=== PATIENT | male | born 1995 | race Caucasian/White ===

== ENCOUNTER 2018-02-09 22:45 | Emergency (ER) | END 2018-02-10 03:57 | disposition home or self-care (01) ==

== ENCOUNTER 2018-03-09 07:31 | Emergency (ER) | END 2018-03-09 10:37 | disposition home or self-care (01) ==

== ENCOUNTER 2018-06-23 08:52 | Emergency (ER) | payer OTHER ==
[~2018-06-23] VITALS: Wt 134.5 kg
[~2018-06-23 08:52] MED LIST: ALBU18HF INHALATION; AZIT250T PO; FAMO-96 PO; HYDR-4012 PO; NAPR-985 PO
[2018-06-23] MEDS ORDERED: ONDANSETRON 4 MG INJ IV STA (12:07)
[2018-06-23] MEDS ORDERED: SOD CHLORIDE 0.9% 1,000 ML IV STA (12:07)
[2018-06-23] MEDS ORDERED: KETOROLAC 30 MG INJ IV STA (12:07)
--- NOTE | 2018-06-23 12:12 | ERD ---
ER Documentation Chief Complaint Chief Complaint "gallstone HPI This is a 23-year-old male with possible history of gallstones presents to the ED with exacerbation of his gallstone pains. Patient states he started to have right upper quadrant and midepigastric pain 4 hours prior to his arrival. Pain has been waxing and waning since then. Pain was not improved with naproxen at home. He states pain is worse with any movement. States pain radiates to his back which is common. He states he was last seen here in March with lab work and imaging that was negative for any gallstone pancreatitis or choledocholithiasis. He presents again today requesting pain control. He denies any associated fevers, chills. Does report some nausea but denies any vomiting, diarrhea, constipation, urinary symptoms or any other complaints. ROS All systems reviewed and are negative except as per history of present illness. Medications Home Meds Active Scripts Famotidine* (Famotidine*) 20 Mg Tablet, 20 MG PO DAILY, #30 TAB Prov:CORTEZ SPEARS PA-C 06/23/18 Naproxen* (Naprosyn*) 500 Mg Tablet, 500 MG PO BID PRN for PAIN AND/OR INFLAMMATION, #30 TAB Prov:MERI LIM PA-C 04/25/18 Famotidine* (Pepcid*) 20 Mg Tablet, 20 MG PO BID for 4 Days, TAB Prov:MERI LIM PA-C 04/25/18 Famotidine* (Pepcid*) 20 Mg Tablet, 20 MG PO BID for pain for 15 Days, #30 TAB 0 Refills Prov:KRISTEL WAYNE 03/09/18 Hydrocodone/Acetaminophen ([place] 7.5-325 Tablet) 1 Each Tablet, 1 EACH PO DAILY for pain for 7 Days, #7 TAB 0 Refills Prov:KRISTEL WAYNE 03/09/18 Albuterol Sulfate* (Ventolin HFA*) 18 Gm Hfa.aer.ad, 2 PUFF INHALATION Q4H, #1 INHALER Prov:DARIENNICO 02/10/18 Azithromycin* (Zithromax*) 250 Mg Tablet, 250 MG PO .YOLANDA DIRECTED, #6 TAB TAKE 500 MG (2 TABS) THE FIRST DAY THEN 250 MG (1 TAB) DAYS 2-5 Prov:NICO LEDEZMA 02/10/18 Allergies Allergies: Coded Allergies: No Known Allergy (Unverified , 04/25/18) PMhx/Soc History of Surgery: No Anesthesia Reaction: No Hx Neurological Disorder: No Hx Respiratory Disorders: No Hx Cardiac Disorders: Yes (high cholesterol) Hx Psychiatric Problems: No Hx Miscellaneous Medical Probl: No Hx Alcohol Use: No Hx Substance Use: No Hx Tobacco Use: No Physical Exam Vitals Vital Signs Date Temp Pulse Resp B/P (MAP) Pulse Ox O2 O2 Flow FiO2 Time Delivery Rate 06/23/18 98.4 60 18 125/62 97 Room Air 14:32 (83) 06/23/18 98.1 80 20 136/78 97 08:55 (97) Physical Exam Const: + Appears uncomfortable. Head: Atraumatic Eyes: Normal Conjunctiva ENT: Normal External Ears, Nose and Mouth. Neck: Full range of motion. No meningismus. Resp: Clear to auscultation bilaterally Cardio: Regular rate and rhythm, no murmurs Abd: Soft, + moderate right upper quadrant and epigastric tenderness. Positive Us sign. Negative McBurney's. No distention. No rebound or guarding. Normal bowel sounds Skin: No petechiae or rashes Back: No midline or flank tenderness Ext: No cyanosis, or edema Neur: Awake and alert Psych: Normal Mood and Affect Result Diagram: 06/23/18 1322 06/23/18 1322 Results 24 hrs Laboratory Tests Test 06/23/18 13:19 06/23/18 13:22 Urine Color YELLOW Urine Clarity CLEAR Urine pH 5.0 Urine Specific [place] 1.028 Urine Ketones TRACE mg/dL Urine Nitrite NEGATIVE mg/dL Urine Bilirubin NEGATIVE mg/dL Urine Urobilinogen NEGATIVE mg/dL Urine Leukocyte Esterase NEGATIVE Urszula/ul Urine Hemoglobin NEGATIVE mg/dL Urine Glucose NEGATIVE mg/dL Urine Total Protein NEGATIVE mg/dl White Blood Count 11.4 10^3/ul Red Blood Count 5.04 10^6/ul Hemoglobin 13.5 g/dl Hematocrit 42.0 % Mean Corpuscular Volume 83.3 fl Mean Corpuscular Hemoglobin 26.8 pg Mean Corpuscular Hemoglobin Concent 32.1 g/dl Red Cell Distribution Width 12.8 % Platelet Count 342 10^3/UL Mean Platelet Volume 10.6 fl Immature Granulocytes % 0.400 % Neutrophils % 86.5 % Lymphocytes % 8.8 % Monocytes % 3.5 % Eosinophils % 0.4 % Basophils % 0.4 % Nucleated Red Blood Cells % 0.0 /100WBC Immature Granulocytes # 0.050 10^3/ul Neutrophils # 9.9 10^3/ul Lymphocytes # 1.0 10^3/ul Monocytes # 0.4 10^3/ul Eosinophils # 0.1 10^3/ul Basophils # 0.1 10^3/ul Nucleated Red Blood Cells # 0.0 10^3/ul Sodium Level 141 mmol/L Potassium Level 4.0 mmol/L Chloride Level 103 mmol/L Carbon Dioxide Level 25 mmol/L Anion Gap 13 Blood Urea Nitrogen 19 mg/dl Creatinine 0.83 mg/dl Est Glomerular Filtrat Rate mL/min > 60 mL/min Glucose Level 116 mg/dl Calcium Level 9.2 mg/dl Total Bilirubin 0.5 mg/dl Direct Bilirubin 0.00 mg/dl Indirect Bilirubin 0.5 mg/dl Aspartate Amino Transf (AST/SGOT) 31 IU/L Alanine Aminotransferase (ALT/SGPT) 27 IU/L Alkaline Phosphatase 71 IU/L Total Protein 7.5 g/dl Albumin 4.4 g/dl Globulin 3.10 g/dl Albumin/Globulin Ratio 1.41 Lipase 37 U/L Current Medications Medications Dose Sig/Erich Start Time Status Last (Trade) Ordered Route PRN Stop Time Admin Dose Reason Admin Sodium 1,000 ml @ Q1H STAT 06/23/18 DC 06/23/18 Chloride 1,000 mls/hr IV 12:07 13:10 06/23/18 13:06 Ondansetron 4 mg ONCE STAT 06/23/18 DC 06/23/18 HCl (Zofran IV 12:07 13:10 Inj) 06/23/18 12:10 Ketorolac 30 mg ONCE STAT 06/23/18 DC 06/23/18 Tromethamine IV 12:07 13:10 (Toradol) 06/23/18 12:10 Procedures/MDM LABS & DIAGNOSTIC IMAGING: CBC: no e/o of systemic infection or severe anemia CMP: no e/o severe acidosis, alkalosis, renal failure, diabetic ketoacidosis, liver disease Lipase: normal and indicative of no pancreatitis. Urine: no e/o acute infection or hematuria PROCEDURE: US Abdomen. CLINICAL INDICATION: abdominal pain TECHNIQUE: Multiple real-time images were acquired of the patient's right upper quadrant abdomen and retroperitoneum utilizing a high resolution transducer. COMPARISON: 04/25/18 FINDINGS: The liver demonstrates normal echogenicity. The liver is normal in size and no focal solid lesions are seen. The liver measures 16.07 cm in length. The portal vein is patent with normal direction of flow. No intrahepatic biliary dila tation is seen. Multiple calcified gallstones are identified within the gallbladder. There is trace pericholecystic fluid . There is no gallbladder wall thickening. The common bile duct measures 6 mm in maximal dimension. The visualized portions of the pancreas are unremarkable. The tail of the pancreas is not seen. No free fluid is identified. The right kidney is normal in size, and demonstrate normal echogenicity and cortical thickness. The right kidney measures 12.9 cm in long dimension. There is no evidence of hydronephrosis. There are no kidney stones. RPTAT: AA IMPRESSION: Cholelithiasis with trace pericholecystic fluid. No evidence of gallbladder wall thickening. Mildly dilated CBD. ED COURSE: The patient was given 1 L of IV fluids, Toradol, Zofran The medication was well tolerated and the patient had market improvement in symptoms. The patient remained stable throughout ED course. MEDICAL DECISION MAKING: This is a 23-year-old male with history of gallstones presents with biliary colic pain. Vital signs are stable and he has no fever here. Physical exam is positive for Us's however no signs of peritonitis or an acute surgical abdomen. CBC, CMP and UA are unremarkable. Ultrasound revealed mild CBD dilation however bilirubin, LFTs and lipase are all within normals. I have low suspicion for choledocholithiasis or cholangitis at this time. Repeat abdominal exam is benign. Patient can be discharged home with outpatient follow-up and management. He is given prescription for famotidine and told to follow-up with his PCP for referral to general surgeon for elective cholecystectomy. Strict return precautions discussed. PRESCRIPTIONS: Pepcid SPECIALIST FOLLOW UP RECOMMENDED: GI, general surgery. Patient has been advised to follow up with primary care in 1-2 days. Departure Diagnosis: Primary Impression: Gallstones Condition: Stable Patient Instructions: Gallstones Referrals: [facility] Additional Instructions: Call your primary care doctor TOMORROW for an appointment during the next 2-4 days and bring all the information and medications prescribed. If the symptoms get worse and your provider is unavailable, return to the Emergency Department immediately. CORTEZ SPEARS PA-C Jun 23, 2018 12:12
[2018-06-23] MEDS ORDERED: FAMO20TA18 PO (14:11)
[2018-06-23 14:32] VITALS: BP 125/62; PULSE 60; RESP 18
== END 2018-06-23 14:32 | disposition home or self-care (01) ==
LOC: FTE 08:52
DX: K80.20 Calculus of gallbladder without cholecystitis without obstruction (principal)
CPT/HCPCS: 36415; 76705; 80053; 81003; 83690; 85025; 96374; 96375; J1885; J2405; J7030; Z7502

== ENCOUNTER 2018-07-09 09:00 | Emergency (ER) | payer OTHER ==
[~2018-07-09] VITALS: Ht 175.3 cm; Wt 132.0 kg
[~2018-07-09 09:00] MED LIST changes: +FAMO20TA18 PO
[2018-07-09 09:06] VITALS: BP 147/89; PULSE 76; RESP 19; Ht 175.3 cm; Wt 132.0 kg
[2018-07-09] MEDS ORDERED: LIDOCAINE/MYLANTA 40 ML BTL PO ONE (10:00)
[2018-07-09] MEDS ORDERED: ACET-141 PO (11:00)
[2018-07-09] MEDS ORDERED: MAG-19 PO (11:00)
[2018-07-09] MEDS ORDERED: METR500T PO (11:00)
[2018-07-09] MEDS ORDERED: IBUP-1561 PO (11:00)
[2018-07-09] MEDS ORDERED: CIPR500T4 PO (11:00)
--- NOTE | 2018-07-09 11:05 | ERD ---
ER Documentation Chief Complaint Chief Complaint epigastric painsince yesterday HPI 23-year-old male presents for epigastric abdominal pain times 1 day. He states that is 8 out of 10 pain, described as a pressure sensation. He has a history of cholecystitis. States that the pain does worsen a little bit with eating. He tried Pepto and Tums at home without relief. He was also told in the past that he may have heartburn. Denies history of alcohol use. Denies any bulging in the abdominal area. No other treatments tried at home. ROS All systems reviewed and are negative except as per history of present illness. Medications Home Meds Active Scripts Metronidazole* (Flagyl*) 500 Mg Tablet, 500 MG PO TID for cholithiasis with wall thicken for 5 Days, #15 TAB Prov:SILVIA SWENSON DO 07/09/18 Ciprofloxacin Hcl* (Ciprofloxacin Hcl*) 500 Mg Tablet, 500 MG PO BID for cholecystitis, #10 TAB Prov:SILVIA SWENSON DO 07/09/18 Acetaminophen* (Acetaminophen*) 500 MG Extra Strength Tablet, 500 MG PO Q4H PRN for PAIN AND OR ELEVATED TEMP, #30 TAB Prov:SILVIA SWENSON DO 07/09/18 Magaldrate/Simethicone* (Mylanta*) 355 Ml Susp, 30 ML PO QID PRN for GASTROINTESTINAL UPSET, #1 BOTTLE Prov:SILVIA SWENSON DO 07/09/18 Ibuprofen* (Motrin*) 400 Mg Tab, 400 MG PO Q6H PRN for PAIN AND OR ELEVATED TEMP, #30 TAB Prov:SILVIA SWENSON DO 07/09/18 Famotidine* (Famotidine*) 20 Mg Tablet, 20 MG PO DAILY, #30 TAB Prov:CORTEZ SPEARS PA-C 06/23/18 Naproxen* (Naprosyn*) 500 Mg Tablet, 500 MG PO BID PRN for PAIN AND/OR INFLAMMATION, #30 TAB Prov:MERI LIM PA-C 04/25/18 Famotidine* (Pepcid*) 20 Mg Tablet, 20 MG PO BID for 4 Days, TAB Prov:MERI LIM PA-C 04/25/18 Famotidine* (Pepcid*) 20 Mg Tablet, 20 MG PO BID for pain for 15 Days, #30 TAB 0 Refills Prov:KRISTEL WAYNE 03/09/18 Hydrocodone/Acetaminophen ([place] 7.5-325 Tablet) 1 Each Tablet, 1 EACH PO DAILY for pain for 7 Days, #7 TAB 0 Refills Prov:KRISTEL WAYNE 03/09/18 Albuterol Sulfate* (Ventolin HFA*) 18 Gm Hfa.aer.ad, 2 PUFF INHALATION Q4H, #1 INHALER Prov:DARIEN,NICO 02/10/18 Azithromycin* (Zithromax*) 250 Mg Tablet, 250 MG PO .ZPACK DIRECTED, #6 TAB TAKE 500 MG (2 TABS) THE FIRST DAY THEN 250 MG (1 TAB) DAYS 2-5 Prov:DARIEN,NICO 02/10/18 Allergies Allergies: Coded Allergies: No Known Allergy (Unverified , 04/25/18) PMhx/Soc History of Surgery: No Anesthesia Reaction: No Hx Neurological Disorder: No Hx Respiratory Disorders: No Hx Cardiac Disorders: Yes (high cholesterol) Hx Psychiatric Problems: No Hx Miscellaneous Medical Probl: Yes (gallstones) Hx Alcohol Use: No Hx Substance Use: No Hx Tobacco Use: No Smoking Status: Never smoker Physical Exam Vitals Vital Signs Date Temp Pulse Resp B/P (MAP) Pulse Ox O2 O2 Flow FiO2 Time Delivery Rate 07/09/18 97.9 76 19 147/89 96 09:06 (108) Physical Exam Const: No acute distress Resp: Clear to auscultation bilaterally Cardio: Regular rate and rhythm, no murmurs Abd: Soft, non distended. Normal bowel sounds, mild to moderate tenderness over the epigastric and right upper quadrant, no McBurney's point tenderness, no Us sign, no rebound or guarding noted Skin: No petechiae or rashes Back: No midline or flank tenderness Ext: No cyanosis, or edema Neur: Awake and alert Psych: Normal Mood and Affect Result Diagram: 07/09/18 0951 07/09/18 0951 Results 24 hrs Laboratory Tests Test 07/09/18 09:51 White Blood Count 10.5 10^3/ul Red Blood Count 5.12 10^6/ul Hemoglobin 13.6 g/dl Hematocrit 42.4 % Mean Corpuscular Volume 82.8 fl Mean Corpuscular Hemoglobin 26.6 pg Mean Corpuscular Hemoglobin Concent 32.1 g/dl Red Cell Distribution Width 12.8 % Platelet Count 359 10^3/UL Mean Platelet Volume 10.1 fl Immature Granulocytes % 0.800 % Neutrophils % 80.5 % Lymphocytes % 12.6 % Monocytes % 4.5 % Eosinophils % 1.3 % Basophils % 0.3 % Nucleated Red Blood Cells % 0.0 /100WBC Immature Granulocytes # 0.080 10^3/ul Neutrophils # 8.5 10^3/ul Lymphocytes # 1.3 10^3/ul Monocytes # 0.5 10^3/ul Eosinophils # 0.1 10^3/ul Basophils # 0.0 10^3/ul Nucleated Red Blood Cells # 0.0 10^3/ul Urine Color YELLOW Urine Clarity CLEAR Urine pH 5.0 Urine Specific [place] 1.021 Urine Ketones NEGATIVE mg/dL Urine Nitrite NEGATIVE mg/dL Urine Bilirubin NEGATIVE mg/dL Urine Urobilinogen NEGATIVE mg/dL Urine Leukocyte Esterase NEGATIVE Ursz[place]/ul Urine Microscopic RBC 1 /HPF Urine Microscopic WBC 0 /HPF Urine Mucus FEW /HPF Urine Hemoglobin 1+ mg/dL Urine Glucose NEGATIVE mg/dL Urine Total Protein NEGATIVE mg/dl Sodium Level 144 mmol/L Potassium Level 4.3 mmol/L Chloride Level 105 mmol/L Carbon Dioxide Level 27 mmol/L Anion Gap 12 Blood Urea Nitrogen 17 mg/dl Creatinine 0.89 mg/dl Est Glomerular Filtrat Rate mL/min > 60 mL/min Glucose Level 109 mg/dl Calcium Level 9.9 mg/dl Total Bilirubin 0.3 mg/dl Direct Bilirubin 0.00 mg/dl Indirect Bilirubin 0.3 mg/dl Aspartate Amino Transf (AST/SGOT) 24 IU/L Alanine Aminotransferase (ALT/SGPT) 19 IU/L Alkaline Phosphatase 86 IU/L Total Protein 8.0 g/dl Albumin 4.6 g/dl Globulin 3.40 g/dl Albumin/Globulin Ratio 1.35 Lipase 46 U/L Current Medications Medications Dose Sig/Erich Start Time Status Last (Trade) Ordered Route PRN Stop Time Admin Dose Reason Admin 40 ml ONCE ONCE 07/09/18 DC 07/09/18 Miscellaneous PO 10:00 09:50 Medication 07/09/18 10:01 (Gi Cocktail (2)) Procedures/MDM Medical Decision Making: Differential diagnosis includes but not limited to acute gastritis, acute gastr oenteritis, appendicitis, cholecystitis, pancreatitis. Patient appeared well on physical exam. Nontoxic appearing. ED course: Patient was given . Symptoms improved with treatment. Labs: CBC showed no severe anemia, no elevated WBC to suggest infection CMP showed no electrolyte abnormalities, there was normal kidney and liver function Lipase was normal UA was negative for infection Imaging: Gallbladder ultrasound shows gallbladder wall thickening with cholelithiasis Given possible early cholecystitis, patient will be treated with antibiotics and pain medications. He has a normal white count as well as no fever and only minimal pain therefore patient is felt stable for outpatient management. Patient advised will need follow-up with general surgery as an outpatient for elective surgery. Prescription(s): Patient given prescription for supportive medications . Patient advised to follow up with PCP in 1-2 days. Patient advised to return to ED for new or worsening symptoms. Patient stable on discharge from the ED. Disclaimer: Inadvertent spelling and grammatical errors are likely due to EHR/dictation software use and do not reflect on the overall quality of patient care. Also, please note that the electronic time recorded on this note does not necessarily reflect the actual time of the patient encounter. Departure Diagnosis: Primary Impression: Abdominal pain Abdominal location: epigastric Qualified Codes: R10.13 - Epigastric pain Additional Impression: Cholelithiasis Condition: Fair Patient Instructions: Gallstones Additional Instructions: Call your primary care doctor TOMORROW for an appointment during the next 1-2 days.See the doctor sooner or return here if your condition worsens before your appointment time. Cholelithiasis with wall thickening found on ultrasound however WBC within normal limits, no fever. treat with antibiotics recommend referral to general surgery as an outpatient. SILVIA SWENSON DO Jul 09, 2018 11:05
== END 2018-07-09 11:10 | disposition home or self-care (01) ==
LOC: FTE 09:00
DX: K80.20 Calculus of gallbladder without cholecystitis without obstruction (principal)
CPT/HCPCS: 36415; 76705; 80053; 81001; 83690; 85025; Z7502; Z7610

== ENCOUNTER 2018-07-23 15:22 | Emergency (ER) | payer OTHER ==
[~2018-07-23] VITALS: Wt 132.4 kg
[~2018-07-23 15:22] MED LIST changes: +ACET-141 PO; +CIPR500T4 PO; +IBUP-1561 PO; +MAG-19 PO; +METR500T PO
[2018-07-23 15:25] VITALS: RESP 20
[2018-07-23] MEDS ORDERED: KETOROLAC 30 MG INJ IM STA (16:43)
[2018-07-23] MEDS ORDERED: LIDOCAINE/MYLANTA 40 ML BTL PO STA (16:43)
[2018-07-23] MEDS ORDERED: FAMOTIDINE 20 MG TAB PO STA (16:43)
[2018-07-23] MEDS ORDERED: HYDR-4011 PO (16:53)
--- NOTE | 2018-07-23 17:02 | ERD ---
ER Documentation Chief Complaint Chief Complaint pt. states "gallstone" pain with n/v HPI 23-year-old male with no reported past medical surgical history who presents with epigastric abdominal pain along with nausea and vomiting. Patient states he has history of gallstones and pain feels similar to pain he had when he presented to this very ED on the of this month for similar complaints. Time patient had ultrasound which showed gallbladder stones and evidence of possible cholecystitis. Patient discharged with pain medication and appropriate antibiotics at the time. Patient has been followed up with his PMD and has been referred to surgery but he is awaiting for insurance clearance. Since his last presentation to ED suspect pain is worsened despite medications. Had a single episode of vomiting several hours ago. Pain described as epigastric with radiation to the back. He otherwise denies urinary symptoms such as frequency, hematuria, discharge. He otherwise without complaint. ROS All systems reviewed and are negative except as per history of present illness. Medications Home Meds Active Scripts Hydrocodone/Acetaminophen ([place] 5-325 Tablet) 1 Each Tablet, 1 TAB PO Q6H PRN for PAIN, #7 TAB Prov:THEA LY PA-C 07/23/18 Metronidazole* (Flagyl*) 500 Mg Tablet, 500 MG PO TID for cholithiasis with wall thicken for 5 Days, #15 TAB Prov:SILVIA SWENSON DO 07/09/18 Ciprofloxacin Hcl* (Ciprofloxacin Hcl*) 500 Mg Tablet, 500 MG PO BID for cholecystitis, #10 TAB Prov:SILVIA SWENSON DO 07/09/18 Acetaminophen* (Acetaminophen*) 500 MG Extra Strength Tablet, 500 MG PO Q4H PRN for PAIN AND OR ELEVATED TEMP, #30 TAB Prov:SILVIA SWENSON DO 07/09/18 Magaldrate/Simethicone* (Mylanta*) 355 Ml Susp, 30 ML PO QID PRN for GASTROINTESTINAL UPSET, #1 BOTTLE Prov:SILVIA SWENSON DO 07/09/18 Ibuprofen* (Motrin*) 400 Mg Tab, 400 MG PO Q6H PRN for PAIN AND OR ELEVATED TEMP, #30 TAB Prov:SILVIA SWENSON DO 07/09/18 Famotidine* (Famotidine*) 20 Mg Tablet, 20 MG PO DAILY, #30 TAB Prov:CORTEZ SPEARS PA-C 06/23/18 Naproxen* (Naprosyn*) 500 Mg Tablet, 500 MG PO BID PRN for PAIN AND/OR INFLAMMATION, #30 TAB Prov:MERI LIM PA-C 04/25/18 Famotidine* (Pepcid*) 20 Mg Tablet, 20 MG PO BID for 4 Days, TAB Prov:MERI LIM PA-C 04/25/18 Famotidine* (Pepcid*) 20 Mg Tablet, 20 MG PO BID for pain for 15 Days, #30 TAB 0 Refills Prov:KRISTEL WAYNE 03/09/18 Hydrocodone/Acetaminophen ([place] 7.5-325 Tablet) 1 Each Tablet, 1 EACH PO DAILY for pain for 7 Days, #7 TAB 0 Refills Prov:KRISTEL WAYNE 03/09/18 Albuterol Sulfate* (Ventolin HFA*) 18 Gm Hfa.aer.ad, 2 PUFF INHALATION Q4H, #1 INHALER Prov:DARIEN,NICO 02/10/18 Azithromycin* (Zithromax*) 250 Mg Tablet, 250 MG PO .B[place] DIRECTED, #6 TAB TAKE 500 MG (2 TABS) THE FIRST DAY THEN 250 MG (1 TAB) DAYS 2-5 Prov:DARIEN,NICO 02/10/18 Allergies Allergies: Coded Allergies: No Known Allergy (Unverified , 07/23/18) PMhx/Soc Medical and Surgical Hx: pt denies Surgical Hx History of Surgery: No Anesthesia Reaction: No Hx Neurological Disorder: No Hx Respiratory Disorders: No Hx Cardiac Disorders: Yes (high cholesterol) Hx Psychiatric Problems: No Hx Miscellaneous Medical Probl: Yes (gallstones) Hx Alcohol Use: No Hx Substance Use: No Hx Tobacco Use: No Smoking Status: Never smoker FmHx Family History: No diabetes, No coronary disease, No other Physical Exam Vitals Vital Signs Date Temp Pulse Resp B/P (MAP) Pulse Ox O2 O2 Flow FiO2 Time Delivery Rate 07/23/18 87 147/83 99 Room Air 17:54 (104) 07/23/18 97.9 80 20 140/84 98 15:25 (102) Physical Exam Const: No acute distress Head: Atraumatic Eyes: Normal Conjunctiva ENT: Normal External Ears, Nose and Mouth. Neck: Full range of motion. No meningismus. Resp: Clear to auscultation bilaterally Cardio: Regular rate and rhythm, no murmurs Abd: Soft, tenderness to deep palp to epigastrium, non distended. Normal bowel sounds Skin: No petechiae or rashes Back: No midline or flank tenderness Ext: No cyanosis, or edema Neur: Awake and alert Psych: Normal Mood and Affect Results 24 hrs Current Medications Medications Dose Sig/Erich Start Time Status Last (Trade) Ordered Route PRN Stop Time Admin Dose Reason Admin Famotidine 20 mg ONCE STAT 07/23/18 DC 07/23/18 (Pepcid) PO 16:43 16:52 07/23/18 16:44 40 ml ONCE STAT 07/23/18 DC 07/23/18 Miscellaneous PO 16:43 16:52 Medication 07/23/18 16:44 (Gi Cocktail (2)) Ketorolac 30 mg ONCE STAT 07/23/18 DC 07/23/18 Tromethamine IM 16:43 16:52 (Toradol) 07/23/18 16:44 Procedures/MDM 23-year-old male with known history of gallstones who presents with gastric pain and nausea and vomiting. She recently treated for resumed cholecystitis. Still awaiting surgical evaluation. His main complaint is pain despite Rx. Patient is nontoxic-appearing, afebrile, without any physical exam findings which are concerning for disseminated infection. Patient detail he will likely need evaluation to address his pain. Patient states he will present to his PMD tomorrow to inquire about surgical referral which he states was made several weeks ago. Their evaluation has not identified a emergent etiology for the abdominal pain. Specifically, given exam and history I have very low suspicion for appendicitis, ischemic bowel, bowel perforation, or any other life threatening disease. I have discussed with the patient the level of uncertainty with undifferentiated abdominal pain and clearly explained the need to follow-up as noted on the discharge instructions, or return to the Emergency Department immediately if the pain worsens, develops fever, persistent and uncontrollable vomiting, or for any new symptoms or concerns. I discussed with the patient that this presentation today for abdominal pain could represent a significant risk for an acute abdominal process. Although the tests in the ED were essentially normal, there is still a possibility of a process such as appendicitis, diverticulitis, cholecystitis, ulcer, early bowel obstruction, mesenteric ischemia, kidney stone, or even kidney infection which could subsequently cause disability or . DISPOSITION PLAN: We discussed follow up with the patient's primary care doctor within 24 to 48 hours. Patient counseled regarding my diagnostic impression and care plan. Prior to discharge all questions answered. Pt agrees with treatment plan and understands strict return precautions. Precautionary instructions provided including instructions to return to the ER if not improving or for any worsening or changing symptoms or concerns. Disclaimer: Inadvertent spelling and grammatical errors are likely due to EHR/dictation software use and do not reflect on the overall quality of patient care. Also, please note that the electronic time recorded on this note does not necessarily reflect the actual time of the patient encounter. Departure Diagnosis: Primary Impression: Gallstones Additional Impression: Abdominal pain Condition: Stable Patient Instructions: Abdominal Pain, Gallstones Referrals: [facility] (PCP) Additional Instructions: Call your primary care doctor TOMORROW for an appointment during the next 2-3 days.See the doctor sooner or return here if your condition worsens before your appointment time. Follow-up with your PMD you need referral to general surgeon for evaluation and your history of gallstones. THEA LY PA-C Jul 23, 2018 17:02
[2018-07-23 17:54] VITALS: BP 147/83; PULSE 87
== END 2018-07-23 17:56 | disposition home or self-care (01) ==
LOC: FTE 15:22
DX: K80.20 Calculus of gallbladder without cholecystitis without obstruction (principal)
CPT/HCPCS: J1885; Z7610; 96372

== ENCOUNTER 2018-07-26 07:14 | Inpatient (IN) | payer OTHER ==
[~2018-07-26] VITALS: Ht 172.7 cm; Wt 130.0 kg
[~2018-07-26 07:14] MED LIST changes: +HYDR-4011 PO
[2018-07-26 07:15] VITALS: Ht 172.7 cm; Wt 130.0 kg
[2018-07-26] MEDS ORDERED: SOD CHLORIDE 0.9% 1,000 ML IV STA (07:33)
[2018-07-26] MEDS ORDERED: morphine 4 MG/ML VIAL IV STA (07:33)
[2018-07-26] MEDS ORDERED: ONDANSETRON 4 MG INJ IV STA (07:33)
[2018-07-26] MEDS ORDERED: PIPER-TAZO 3.375 GM IV (PMX) 100 ML IVPB ONE (09:00)
--- NOTE | 2018-07-26 09:04 | CONS ---
Assessment/Plan Assessment/Plan Assessment/Plan (Daily) Cholelithiasis and likely choledocholithiasis. Plan: Patient will need MRCP and GI consultation. Cholecystectomy when common duct cleared Consultation Date/Type/Reason Admit Date/Time Date of Consultation: July 26, 2018 Type of Consult General surgery Reason for Consultation Gallstones and jaundice Date/Time of Note DATE: 07/26/18 TIME: 09:00 Hx of Present Illness The patient is an otherwise healthy 23-year-old gentleman who has been in the emergency room at least 4 possibly 5 times since February for biliary colic. He now presents with identical pain, this time his bilirubin is elevated to 3.1 with transaminase elevation of ALT of 422 AST 416 and alkaline phosphatase of 193. He notes that his urine has recently gotten darker. He has had no fevers or chills. Review of systems: HEENT: No previous history or symptoms Pulmonary: No history of asthma, pneumonia or shortness of breath Cardiac: No history of chest pain, LA or arrhythmia Abdomen: As in the HPI. No previous abdominal surgeries. : Asymptomatic Past Medical History Medical History: gallstones Home Meds Active Scripts Hydrocodone/Acetaminophen ([place] 5-325 Tablet) 1 Each Tablet, 1 TAB PO Q6H PRN for PAIN, #7 TAB Prov:THEA LY PA-C 07/23/18 Metronidazole* (Flagyl*) 500 Mg Tablet, 500 MG PO TID for cholithiasis with wall thicken for 5 Days, #15 TAB Prov:SILVIA SWENSON DO 07/09/18 Ciprofloxacin Hcl* (Ciprofloxacin Hcl*) 500 Mg Tablet, 500 MG PO BID for cholecystitis, #10 TAB Prov:SILVIA SWENSON DO 07/09/18 Acetaminophen* (Acetaminophen*) 500 MG Extra Strength Tablet, 500 MG PO Q4H PRN for PAIN AND OR ELEVATED TEMP, #30 TAB Prov:SILVIA SWENSON DO 07/09/18 Magaldrate/Simethicone* (Mylanta*) 355 Ml Susp, 30 ML PO QID PRN for GASTROI NTESTINAL UPSET, #1 BOTTLE Prov:SILVIA SWENSON DO 07/09/18 Ibuprofen* (Motrin*) 400 Mg Tab, 400 MG PO Q6H PRN for PAIN AND OR ELEVATED TEMP, #30 TAB Prov:SILVIA SWENSON DO 07/09/18 Famotidine* (Famotidine*) 20 Mg Tablet, 20 MG PO DAILY, #30 TAB Prov:CORTEZ SPEARS Carrillo MCDONALD 06/23/18 Naproxen* (Naprosyn*) 500 Mg Tablet, 500 MG PO BID PRN for PAIN AND/OR INFLAMMATION, #30 TAB Prov:MERI LIM PA-C 04/25/18 Famotidine* (Pepcid*) 20 Mg Tablet, 20 MG PO BID for 4 Days, TAB Prov:MERI LIM PA-C 04/25/18 Famotidine* (Pepcid*) 20 Mg Tablet, 20 MG PO BID for pain for 15 Days, #30 TAB 0 Refills Prov:KRISTEL WAYNE 03/09/18 Hydrocodone/Acetaminophen ([place] 7.5-325 Tablet) 1 Each Tablet, 1 EACH PO DAILY for pain for 7 Days, #7 TAB 0 Refills Prov:KRISTEL WAYNE 03/09/18 Albuterol Sulfate* (Ventolin HFA*) 18 Gm Hfa.aer.ad, 2 PUFF INHALATION Q4H, #1 INHALER Prov:DARIEN,NICO 02/10/18 Azithromycin* (Zithromax*) 250 Mg Tablet, 250 MG PO .BETICK DIRECTED, #6 TAB TAKE 500 MG (2 TABS) THE FIRST DAY THEN 250 MG (1 TAB) DAYS 2-5 Prov:DARIEN,NICO 02/10/18 Medications Current Medications Piperacillin Sod/ Tazobactam Sod 100 ml @ 200 mls/hr ONCE ONCE IVPB Last administered on 07/26/18at 08:55; Admin Dose 200 MLS/HR; Start 07/26/18 at 09:00; Stop 07/26/18 at 09:29 Allergies: Coded Allergies: No Known Allergy (Unverified , 07/26/18) Past Surgical History Past Surgical Hx: no surgical history Exam/Review of Systems Exam Vitals Vital Signs Date Temp Pulse Resp B/P (MAP) Pulse Ox O2 O2 Flow FiO2 Time Delivery Rate 07/26/18 76 18 129/69 96 Room Air 08:50 (89) 07/26/18 97.8 07:15 Constitutional: alert, oriented Psych: no complaints Head: normocephalic Eyes: icteric ENMT: nl external ears & nose Neck: supple Respiratory: clear to auscultation Cardiovascular: regular rate and rhythm Gastrointestinal: tender (Epigastrium) Genitourinary - Male: nl penis Musculoskeletal: nl extremities to inspection Extremities: normal pulses Neurological: [employer] II-XII intact Skin: nl turgor Results Result Diagram: 07/26/18 0745 07/26/18 0745 Results 24hrs Laboratory Tests Test 07/26/18 07:38 07/26/18 07:45 Urine Color SUDHAKAR Urine Clarity CLEAR Urine pH 5.0 Urine Specific [place] 1.017 Urine Ketones NEGATIVE Urine Nitrite NEGATIVE Urine Bilirubin 1+ H Urine Urobilinogen 2+ H Urine Leukocyte Esterase NEGATIVE Urine Hemoglobin NEGATIVE Urine Glucose NEGATIVE Urine Total Protein NEGATIVE White Blood Count 7.9 # Red Blood Count 5.30 Hemoglobin 14.1 Hematocrit 44.0 Mean Corpuscular Volume 83.0 Mean Corpuscular Hemoglobin 26.6 L Mean Corpuscular Hemoglobin Concent 32.0 Red Cell Distribution Width 13.2 Platelet Count 319 Mean Platelet Volume 10.3 Immature Granulocytes % 0.500 H Neutrophils % 71.0 Lymphocytes % 19.4 Monocytes % 6.3 Eosinophils % 2.2 Basophils % 0.6 Nucleated Red Blood Cells % 0.0 Immature Granulocytes # 0.040 H Neutrophils # 5.6 Lymphocytes # 1.5 Monocytes # 0.5 Eosinophils # 0.2 Basophils # 0.1 Nucleated Red Blood Cells # 0.0 Sodium Level 144 Potassium Level 4.2 Chloride Level 106 Carbon Dioxide Level 28 Anion Gap 10 Blood Urea Nitrogen 12 Creatinine 0.96 Est Glomerular Filtrat Rate mL/min > 60 Glucose Level 122 Calcium Level 9.9 Total Bilirubin 3.1 H Direct Bilirubin 1.60 H Indirect Bilirubin 1.5 H Aspartate Amino Transf (AST/SGOT) 416 H Alanine Aminotransferase (ALT/SGPT) 422 H Alkaline Phosphatase 197 H Total Protein 8.3 H Albumin 4.4 Globulin 3.90 H Albumin/Globulin Ratio 1.12 Lipase 53 Medications Medication Current Medications Piperacillin Sod/ Tazobactam Sod 100 ml @ 200 mls/hr ONCE ONCE IVPB Last administered on 07/26/18at 08:55; Admin Dose 200 MLS/HR; Start 07/26/18 at 09:00; Stop 07/26/18 at 09:29 PASCUAL BECKETT MD July 26, 2018 09:04
[2018-07-26] MEDS ORDERED: FAMO20TA18 PO (09:14)
[2018-07-26] MEDS ORDERED: ACETAMINOPHEN 325 MG TAB PO PRN (09:30)
[2018-07-26] MEDS ORDERED: ONDANSETRON 4 MG INJ IV PRN ×2 (09:30→11:00)
--- NOTE | 2018-07-26 09:57 | ERD ---
ER Documentation Chief Complaint Chief Complaint abd pain with nausea x 3 days HX of gallstones HPI 23-year-old male presenting with abdominal pain to the epigastric region with nausea. Patient has a history of gallstones and was seen by Dr. Collins yesterday and told he needed a cholecystectomy. Patient has not had a surgery and has had continued and worsening pain as of yesterday. Denies any fevers. Denies chest pain or breath. Denies medical problems. NKDA. Surgical history denies. Social history denies. Last bowel movement yesterday ROS All systems reviewed and are negative except as per history of present illness. Medications Home Meds Reported Medications Famotidine* (Famotidine*) 20 Mg Tablet, 20 MG PO BID, #60 TAB 07/26/18 Discontinued Scripts Hydrocodone/Acetaminophen ([place] 5-325 Tablet) 1 Each Tablet, 1 TAB PO Q6H PRN for PAIN, #7 TAB Prov:THEA LY PA-C 07/23/18 Metronidazole* (Flagyl*) 500 Mg Tablet, 500 MG PO TID for cholithiasis with wall thicken for 5 Days, #15 TAB Prov:SILVIA SWENSON DO 07/09/18 Ciprofloxacin Hcl* (Ciprofloxacin Hcl*) 500 Mg Tablet, 500 MG PO BID for c holecystitis, #10 TAB Prov:SILVIA SWENSON DO 07/09/18 Acetaminophen* (Acetaminophen*) 500 MG Extra Strength Tablet, 500 MG PO Q4H PRN for PAIN AND OR ELEVATED TEMP, #30 TAB Prov:SILVIA SWENSON DO 07/09/18 Magaldrate/Simethicone* (Mylanta*) 355 Ml Susp, 30 ML PO QID PRN for GASTROINTESTINAL UPSET, #1 BOTTLE Prov:SILVIA SWENSON DO 07/09/18 Ibuprofen* (Motrin*) 400 Mg Tab, 400 MG PO Q6H PRN for PAIN AND OR ELEVATED TEMP, #30 TAB Prov:SILVIA SWENSON DO 07/09/18 Famotidine* (Famotidine*) 20 Mg Tablet, 20 MG PO DAILY, #30 TAB Prov:CORTEZ SPEARS PA-C 06/23/18 Naproxen* (Naprosyn*) 500 Mg Tablet, 500 MG PO BID PRN for PAIN AND/OR INFLAMMATION, #30 TAB Prov:MERI LIM PA-C 04/25/18 Famotidine* (Pepcid*) 20 Mg Tablet, 20 MG PO BID for 4 Days, TAB Prov:LIMMERIMEL Jeffery PA-C 04/25/18 Famotidine* (Pepcid*) 20 Mg Tablet, 20 MG PO BID for pain for 15 Days, #30 TAB 0 Refills Prov:KRISTEL WAYNE 03/09/18 Hydrocodone/Acetaminophen ([place] 7.5-325 Tablet) 1 Each Tablet, 1 EACH PO DAILY for pain for 7 Days, #7 TAB 0 Refills Prov:KRISTEL WAYNE 03/09/18 Albuterol Sulfate* (Ventolin HFA*) 18 Gm Hfa.aer.ad, 2 PUFF INHALATION Q4H, #1 INHALER Prov:DARIENJOSENICO 02/10/18 Azithromycin* (Zithromax*) 250 Mg Tablet, 250 MG PO .ZPACK DIRECTED, #6 TAB TAKE 500 MG (2 TABS) THE FIRST DAY THEN 250 MG (1 TAB) DAYS 2-5 Prov:DARIEN,NICO 02/10/18 Allergies Allergies: Coded Allergies: No Known Allergy (Unverified , 07/26/18) PMhx/Soc History of Surgery: No Anesthesia Reaction: No Hx Neurological Disorder: No Hx Respiratory Disorders: No Hx Cardiac Disorders: Yes (high cholesterol) Hx Psychiatric Problems: No Hx Miscellaneous Medical Probl: Yes (gallstones) Hx Alcohol Use: No Hx Substance Use: No Hx Tobacco Use: No FmHx Family History: No diabetes, No coronary disease, No other Physical Exam Vitals Vital Signs Date Temp Pulse Resp B/P (MAP) Pulse Ox O2 O2 Flow FiO2 Time Delivery Rate 07/26/18 76 18 129/69 96 Room Air 08:50 (89) 07/26/18 97.8 82 18 135/83 97 07:15 (100) Physical Exam GENERAL: The patient is well-appearing, well-nourished, in no acute distress HEENT: Atraumatic. Conjunctivae are pink. Pupils equal, round, and reactive to light. There is no scleral icterus. Tympanic membranes clear bilaterally. Oropharynx clear. NECK: C-spine is soft and supple. There is no meningismus. There is no cervical lymphadenopathy. CHEST: Clear to auscultation bilaterally. There are no rales, wheezes or rhonchi. HEART: Regular rate and rhythm. No murmurs, clicks, rubs or gallops. ABDOMEN: Normal active bowel sounds. No distention. No organomegaly. Tender to palpation in the epigastric region. Result Diagram: 07/26/18 0745 07/26/18 0745 Results 24 hrs Laboratory Tests Test 07/26/18 07:38 07/26/18 07:45 Urine Color SUDHAKAR Urine Clarity CLEAR Urine pH 5.0 Urine Specific [place] 1.017 Urine Ketones NEGATIVE mg/dL Urine Nitrite NEGATIVE mg/dL Urine Bilirubin 1+ mg/dL Urine Urobilinogen 2+ mg/dL Urine Leukocyte Esterase NEGATIVE [place]/ul Urine Hemoglobin NEGATIVE mg/dL Urine Glucose NEGATIVE mg/dL Urine Total Protein NEGATIVE mg/dl White Blood Count 7.9 10^3/ul Red Blood Count 5.30 10^6/ul Hemoglobin 14.1 g/dl Hematocrit 44.0 % Mean Corpuscular Volume 83.0 fl Mean Corpuscular Hemoglobin 26.6 pg Mean Corpuscular Hemoglobin Concent 32.0 g/dl Red Cell Distribution Width 13.2 % Platelet Count 319 10^3/UL Mean Platelet Volume 10.3 fl Immature Granulocytes % 0.500 % Neutrophils % 71.0 % Lymphocytes % 19.4 % Monocytes % 6.3 % Eosinophils % 2.2 % Basophils % 0.6 % Nucleated Red Blood Cells % 0.0 /100WBC Immature Granulocytes # 0.040 10^3/ul Neutrophils # 5.6 10^3/ul Lymphocytes # 1.5 10^3/ul Monocytes # 0.5 10^3/ul Eosinophils # 0.2 10^3/ul Basophils # 0.1 10^3/ul Nucleated Red Blood Cells # 0.0 10^3/ul Sodium Level 144 mmol/L Potassium Level 4.2 mmol/L Chloride Level 106 mmol/L Carbon Dioxide Level 28 mmol/L Anion Gap 10 Blood Urea Nitrogen 12 mg/dl Creatinine 0.96 mg/dl Est Glomerular Filtrat Rate mL/min > 60 mL/min Glucose Level 122 mg/dl Calcium Level 9.9 mg/dl Total Bilirubin 3.1 mg/dl Direct Bilirubin 1.60 mg/dl Indirect Bilirubin 1.5 mg/dl Aspartate Amino Transf (AST/SGOT) 416 IU/L Alanine Aminotransferase (ALT/SGPT) 422 IU/L Alkaline Phosphatase 197 IU/L Total Protein 8.3 g/dl Albumin 4.4 g/dl Globulin 3.90 g/dl Albumin/Globulin Ratio 1.12 Lipase 53 U/L Current Medications Medications Dose Sig/Erich Start Time Status Last (Trade) Ordered Route PRN Stop Time Admin Dose Reason Admin Sodium 1,000 ml @ Q1H STAT 07/26/18 DC 07/26/18 Chloride 1,000 mls/hr IV 07:33 07/26/18 07:43 08:32 Morphine 4 mg ONCE STAT 07/26/18 DC 07/26/18 Sulfate IV 07:33 07/26/18 07:43 (morphine) 07:35 Ondansetron 4 mg ONCE STAT 07/26/18 DC 07/26/18 HCl (Zofran IV 07:33 07/26/18 07:43 Inj) 07:35 Piperacillin 100 ml @ ONCE ONCE 07/26/18 DC 07/26/18 Sod/ 200 mls/hr IVPB 09:00 07/26/18 08:55 Tazobactam 09:29 Sod Ondansetron 4 mg BRIDGE ORDER 07/26/18 HCl (Zofran PRN IV 09:30 07/27/18 Inj) NAUSEA/VOMITI 09:29 NG 650 mg ER BRIDGE 07/26/18 Acetaminophen PRN PO 09:30 07/27/18 (Tylenol .MILD PAIN 09:29 Tab) 1-3 OR TEMP Procedures/MDM DIAGNOSTIC IMAGING REPORT Patient: KORY PRATER : 1995 Age: 23 Sex: M MR #: [id number] DOS: 07/26/18 0733 Ordering MD: DEL LIM PA-C Location: E Room/Bed: PROCEDURE: Ultrasound abdomen complete CLINICAL INDICATION: abdominal pain TECHNIQUE: Conn scale, color flow and Doppler ultrasound images of the abdomen. COMPARISON: US ABDOMEN 07/09/2018 FINDINGS: Pancreas: Imaged portions of the head and body of the pancreas are unremarkable. The tail of the pancreas is obscured by shadowing bowel gas. Liver: Mildly echogenic appearance of the liver consistent with diffuse steatosis. No parenchymal lesions otherwise identified. Normal directional flow toward the liver is demonstrated in the main portal vein. Gallbladder: Multiple mobile gallstones. The gallbladder wall is slightly thickened at 4 mm. No pericholecystic fluid. Biliary system: The common bile duct measures 9 mm diameter. No stones are charbel ntified within the duct. No associated dilatation of the intrahepatic biliary system. Right Kidney: Measures 13.7 cm in length and demonstrates normal echotexture. No hydronephrosis, intrarenal calculus or abnormal perinephric fluid. Additional findings: None IMPRESSION: 1. Multiple mobile gallstones. Slightly thickened appearance of the gallbladder wall, nonspecific and similar compared with previous exam. No associated pericholecystic fluid. 2. Common bile duct dilated to a diameter of 9 mm, increased compared with previous measurement of 6 mm on 07/09/2018. No stones otherwise identified within the duct, consider further evaluation with MRCP to assess for distal obstruction if clinically warranted. 3. Mild hepatic steatosis. ER Course: Morphine, Zofran and Zosyn given the ED. 1 L normal saline given in ED. Dr. Brito will help facilitate admission. Patient is stable at the time of admission. MDM: 23-year-old male presenting with choledocholithiasis. I have low suspicion for sepsis. Patient will be admitted for surgical consultation and inpatient management. Patient is stable at the time of admission. She is aware of diagnosis. All questions answered at admission ED physician supervisory Addendum I evaluated the patient. Differential diagnosis and management options discussed. Results reviewed. I agree with the assessment and the plan of care as documented in the PA/DRIER notes. 23-year-old male with a history of cholelithiasis presents with worsening right upper quadrant pain. LFTs reveal hyperbilirubinemia and transaminitis. Ultrasound reveals cholelithiasis with thickened gallbladder wall consistent with cholecystitis as well as a dilated CBD suspicious for choledocholithiasis. Pain resolved with intravenous analgesics and antiemetics. Zosyn given. General surgery and gastroenterology consulted. Patient will be admitted to [facility] for urgent MRCP, further evaluation and management. Departure Diagnosis: Primary Impression: Acute abdominal pain in right upper quadrant Additional Impressions: Cholecystitis Choledocholithiasis Condition: Serious MERI LIM-C July 26, 2018 09:57 BRADLEY BRITO MD July 26, 2018 10:20
--- NOTE | 2018-07-26 10:52 | HP ---
Date/Time of Note Date/Time of Note DATE: 07/26/18 TIME: 10:37 Assessment/Plan VTE Prophylaxis SCD applied (from Nsg): Yes Pharmacological prophylaxis: NA/contraindicated Pharm contraindication: low risk/ambulating Lines/Catheters IV Catheter Type (from Nrsg): Saline Lock Assessment/Plan Assessment/Plan Obese 23 yo man presents with gallstones and dilated CBD. #Elevated AST/ALT #Gallstones #Dilated CBD - Failed outpatient management for elective cholecystectomy - Dr. Jean Baptiste consulted for cholecystectomy - Plan for MRCP to rule out choledocho - Will consult GI is ERCP necessary. - For now empiric Zosyn - NPO, IV fluids, opioid analgesia. #Chest pain - Patient reports epigastric-chest pain which likely is from his gallbladder disease - However parts of history are somewhat concerning including worsening pain on exertion. - Very unlikely to have CAD at such a young age - Will check trop, EKG. #Morbid obesity #Dyslipidemia - Will check lipid panel, TSH, HgbA1C - Patient was on unknown cholesterol med, if elevated will consider starting statin. DVT: SCDs GI: PPI Result Diagram: 07/26/18 0745 07/26/18 0745 HPI/ROS Admit Date/Time Admit Date/Time 26 Jul 2018 Hx of Present Illness Mr. Mcallister is a 23 yo man with history of gallstones, biliary colic, and dyslipidemia who presents with RUQ pain. He has had five ED visits since Feb 2018 for this problem. He complains of RUQ and epigastric pressure-like and stabbing pain, sometimes radiating to the back, associated with nausea which occurs sporadically. Not necessarily associated with certain foods that he's noticed. He came to the ED 02/2018, 03/2018, 05/2018, 07/10, 07/23, and today 07/26 for this problem. Each time he was discharged with instructions to get an outpatient lap glen. On Sunday 07/23 the most recent episode started, he had an episode of NBNB vomiting. Saw his PMD on Monday 07/24 who gave him referral to a surgeon. He saw the surgeon 07/25 who told him he n eeded pre-op clearance and surgery may be scheduled at earliest late July. He had been taking [place] q6h around the clock for the pain for the last 3 days. This morning he noticed that moderate exertion like walking and also deep breaths worsened the pain. So he returned to the ED. In the ED he was afebrile, vitals unremarkable. Labs show AST/ALT in 400s and tbili 3.1. Normal WBC. US showed multiple gallstones and dilated CBD to 9 mm with no visible gallstones. ROS He denies recent fever, chills, night sweats, weight loss, anorexia, headache, dizziness, chest pain/pressure/palpitations, cough, shortness of breath, diarrhea, constipation, dysuria, hematuria. PMH/Family/Social Past Medical History Dyslipidemia. Unknown cholesterol med, stopped it an unknown time ago. Medical History: gallstones Medications Current Medications Ondansetron HCl (Zofran Inj) 4 mg BRIDGE ORDER PRN IV NAUSEA/VOMITING; Start 07/26/18 at 09:30; Stop 07/27/18 at 09:29 Acetaminophen (Tylenol Tab) 650 mg ER BRIDGE PRN PO .MILD PAIN 1-3 OR TEMP; Start 07/26/18 at 09:30; Stop 07/27/18 at 09:29 Sodium Chloride 1,000 ml @ 80 mls/hr [id number] IV ; Start 07/26/18 at 10:31; Status UNV IV Flush (NS 3 ml) 3 ml PER PROTOCOL IV ; Start 07/26/18 at 11:00; Status UNV Ondansetron HCl (Zofran Inj) 4 mg Q6H PRN IV NAUSEA/VOMITING; Start 07/26/18 at 11:00; Status UNV Acetaminophen/ Hydrocodone Bitart ([place] (5/325)) 1 tab Q6H PRN PO .MOD PAIN 4- 6; Start 07/26/18 at 11:00; Status UNV Morphine Sulfate (morphine) 2 mg Q4H PRN IV .SEVERE PAIN 7-10; Start 07/26/18 at 11:00; Status UNV Pantoprazole (Protonix Iv) 40 mg DAILY@06 IV ; Start 07/27/18 at 06:00; Status UNV Coded Allergies: No Known Allergy (Unverified , 07/26/18) Past Surgical History Intestine or R inguinal hernia surgery in childhood age 6-10 yo. Family History Significant Family History: other (No history of cardiac disease, stroke, diabetes. Grandfather had unknown cancer. 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 ) Smoking Status: Never smoker Drug Use: none Exam/Review of Systems Vital Signs Vitals Vital Signs Date Temp Pulse Resp B/P (MAP) Pulse Ox O2 O2 Flow FiO2 Time Delivery Rate 07/26/18 98.0 77 18 147/86 96 Room Air 10:35 (106) Exam Exam Gen: Obese man well appearing no acute distress. Eyes: PERRL, no icterus HEENT: Moist mucous membranes, clear oropharynx Neck: No lymphadenopathy or masses. Very wide circumference. Card: Regular rate and rhythm, no murmurs Pulm: Clear to auscultation bilaterally. Abd: Moderate RUQ tenderness to palpation, mild epigastric tenderness. Otherwise soft, obese, nondistended. No palpable splenomegaly. Ext: No LE edema. Skin: warm, dry, well perfused. POLLY DICKSON MD July 26, 2018 10:49
[2018-07-26] MEDS ORDERED: NACL 0.9% 3 ML SYG IV SCH (11:00)
[2018-07-26 11:02] VITALS: BP 140/68; PULSE 58; RESP 19
[2018-07-26] MEDS: SOD CHLORIDE 0.45% 1,000 ML IV SCH ×2 (11:41→23:01)
--- NOTE | 2018-07-26 15:37 | CONS ---
Assessment/Plan Assessment/Plan Hospital Course (Demo Recall) Summary Assessment and Plan: Assessment: Elevated LFTS with hyperbilirubinemia -R/o choledocholithiasis Common bile duct dilated to a diameter of 9 mm -increased compared with previous measurement of 6 mm on 07/09/2018 Cholelithiasis Mild hepatic steatosis Obesity- BMI 43.6 Plan: MRCP-pending, if positive will proceed with ERCP Monitor labs Ok to start clear liquid diet from GI point of view Per surgery plan for Cholecystectomy when common duct cleared Patient seen in collaboration with Dr. Horne CC: LOTUS HORNE MD ; Consultation Date/Type/Reason Admit Date/Time 26 Jul 2018 Date of Consultation: July 26, 2018 Type of Consult GI Reason for Consultation Elevated LFTs r/o choledocholithiasis Date/Time of Note DATE: 07/26/18 TIME: 15:22 Hx of Present Illness This is a 23-year-old male with past medical history of obesity, and prediabetes who been to the emergency department on several different occasions for biliary colic. He represents today with complete the right upper quadrant pain associate with nausea and vomiting he denies diarrhea or radiation to the back.Labs with this evaluation show elevated LFTs including hyperbilirubinemia direct minimally higher than indirect. An MRCP has been ordered and results are currently pending. Based on results we will proceed with ERCP if positive for choledocholithiasis reviewed risk/benefits of both sedation and procedure with patient who verbalized understanding is agreeable. Review of Systems: A 12 system, review was conducted and is negative except as noted in the HPI or here. Past Medical History Medical History: gallstones Home Meds Reported Medications Famotidine* (Famotidine*) 20 Mg Tablet, 20 MG PO BID, #60 TAB 07/26/18 Discontinued Scripts Hydrocodone/Acetaminophen ([place] 5-325 Tablet) 1 Each Tablet, 1 TAB PO Q6H PRN for PAIN, #7 TAB Prov:THEA LY PA-C 07/23/18 Metronidazole* (Flagyl*) 500 Mg Tablet, 500 MG PO TID for cholithiasis with wall thicken for 5 Days, #15 TAB Prov:SILVIA SWENSON DO 07/09/18 Ciprofloxacin Hcl* (Ciprofloxacin Hcl*) 500 Mg Tablet, 500 MG PO BID for cholecystitis, #10 TAB Prov:SILVIA SWENSON DO 07/09/18 Acetaminophen* (Acetaminophen*) 500 MG Extra Strength Tablet, 500 MG PO Q4H PRN for PAIN AND OR ELEVATED TEMP, #30 TAB Prov:SILVIA SWENSON DO 07/09/18 Magaldrate/Simethicone* (Mylanta*) 355 Ml Susp, 30 ML PO QID PRN for GASTROINTESTINAL UPSET, #1 BOTTLE Prov:SILVIA SWENSON DO 07/09/18 Ibuprofen* (Motrin*) 400 Mg Tab, 400 MG PO Q6H PRN for PAIN AND OR ELEVATED TEMP, #30 TAB Prov:SILVIA SWENSON DO 07/09/18 Famotidine* (Famotidine*) 20 Mg Tablet, 20 MG PO DAILY, #30 TAB Prov:CORTEZ SPEARSC 06/23/18 Naproxen* (Naprosyn*) 500 Mg Tablet, 500 MG PO BID PRN for PAIN AND/OR INF LAMMATION, #30 TAB Prov:MERI LIM PA-C 04/25/18 Famotidine* (Pepcid*) 20 Mg Tablet, 20 MG PO BID for 4 Days, TAB Prov:MERI LIM PA-C 04/25/18 Famotidine* (Pepcid*) 20 Mg Tablet, 20 MG PO BID for pain for 15 Days, #30 TAB 0 Refills Prov:KRISTEL WAYNE 03/09/18 Hydrocodone/Acetaminophen ([place] 7.5-325 Tablet) 1 Each Tablet, 1 EACH PO DAILY for pain for 7 Days, #7 TAB 0 Refills Prov:KRISTEL WAYNE 03/09/18 Albuterol Sulfate* (Ventolin HFA*) 18 Gm Hfa.aer.ad, 2 PUFF INHALATION Q4H, #1 INHALER Prov:DARIEN,NICO 02/10/18 Azithromycin* (Zithromax*) 250 Mg Tablet, 250 MG PO .YOLANDA DIRECTED, #6 TAB TAKE 500 MG (2 TABS) THE FIRST DAY THEN 250 MG (1 TAB) DAYS 2-5 Prov:DARIEN,NICO 02/10/18 Medications Current Medications Ondansetron HCl (Zofran Inj) 4 mg BRIDGE ORDER PRN IV NAUSEA/VOMITING; Start 07/26/18 at 09:30; Stop 07/27/18 at 09:29 Acetaminophen (Tylenol Tab) 650 mg ER BRIDGE PRN PO .MILD PAIN 1-3 OR TEMP; Start 07/26/18 at 09:30; Stop 07/27/18 at 09:29 Sodium Chloride 1,000 ml @ 80 mls/hr [id number] IV Last administered on 07/26/18at 11:41; Admin Dose 80 MLS/HR; Start 07/26/18 at 10:31 IV Flush (NS 3 ml) 3 ml PER PROTOCOL IV ; Start 07/26/18 at 11:00 Ondansetron HCl (Zofran Inj) 4 mg Q6H PRN IV NAUSEA/VOMITING; Start 07/26/18 at 11:00 Acetaminophen/ Hydrocodone Bitart ([place] (5/325)) 1 tab Q6H PRN PO .MOD PAIN 4- 6; Start 07/26/18 at 11:00 Morphine Sulfate (morphine) 2 mg Q4H PRN IV .SEVERE PAIN 7-10; Start 07/26/18 at 11:00 Pantoprazole (Protonix Iv) 40 mg DAILY@06 IV ; Start 07/27/18 at 06:00 Allergies: Coded Allergies: No Known Allergy (Unverified , 07/26/18) Social History Alcohol Use: sober (quit Feb 2018. ) Smoking Status: Never smoker Drug Use: none Exam/Review of Systems Exam Vitals Vital Signs Date Temp Pulse Resp B/P (MAP) Pulse Ox O2 O2 Flow FiO2 Time Delivery Rate 07/26/18 98.8 58 19 140/68 99 Room Air 11:02 (92) Exam PHYSICAL EXAMINATION: GENERAL: Well developed, well nourished, alert & oriented x 3, in no acute distress SKIN: No lesions. HEAD: Normocephalic, atraumatic, no tenderness. EYES: Pupils equal reactive to light and accommodation, full extraocular movemen ts, sclera clear, non-icteric, no discharge. EARS/NOSE AND THROAT: Ears normal, nose normal. NECK: Supple, no masses CHEST: Inspection within normal limits. CARDIOVASCULAR: Heart: Regular rate and rhythm RESPIRATORY: Lungs clear to auscultation GASTROINTESTINAL AND LIVER: Abdomen: Soft, non tenderness, no organomegaly, no ascites, no guarding, no rebound tenderness, normoactive bowel sounds. Rectal: Deferred. EXTREMITIES: No cyanosis, clubbing or edema. Results Result Diagram: 07/26/18 0745 07/26/18 0745 Results 24hrs Laboratory Tests Test 07/26/18 07:38 07/26/18 07:45 07/26/18 12:06 Urine Color SUDHAKAR Urine Clarity CLEAR Urine pH 5.0 Urine Specific [place] 1.017 Urine Ketones NEGATIVE Urine Nitrite NEGATIVE Urine Bilirubin 1+ H Urine Urobilinogen 2+ H Urine Leukocyte Esterase NEGATIVE Urine Hemoglobin NEGATIVE Urine Glucose NEGATIVE Urine Total Protein NEGATIVE White Blood Count 7.9 # Red Blood Count 5.30 Hemoglobin 14.1 Hematocrit 44.0 Mean Corpuscular Volume 83.0 Mean Corpuscular Hemoglobin 26.6 L Mean Corpuscular Hemoglobin Concent 32.0 Red Cell Distribution Width 13.2 Platelet Count 319 Mean Platelet Volume 10.3 Immature Granulocytes % 0.500 H Neutrophils % 71.0 Lymphocytes % 19.4 Monocytes % 6.3 Eosinophils % 2.2 Basophils % 0.6 Nucleated Red Blood Cells % 0.0 Immature Granulocytes # 0.040 H Neutrophils # 5.6 Lymphocytes # 1.5 Monocytes # 0.5 Eosinophils # 0.2 Basophils # 0.1 Nucleated Red Blood Cells # 0.0 Sodium Level 144 Potassium Level 4.2 Chloride Level 106 Carbon Dioxide Level 28 Anion Gap 10 Blood Urea Nitrogen 12 Creatinine 0.96 Est Glomerular Filtrat Rate mL/min > 60 Glucose Level 122 Calcium Level 9.9 Total Bilirubin 3.1 H Direct Bilirubin 1.60 H Indirect Bilirubin 1.5 H Aspartate Amino Transf (AST/SGOT) 416 H Alanine Aminotransferase (ALT/SGPT) 422 H Alkaline Phosphatase 197 H Total Protein 8.3 H Albumin 4.4 Globulin 3.90 H Albumin/Globulin Ratio 1.12 Lipase 53 Troponin I < 0.012 Medications Medication Current Medications Ondansetron HCl (Zofran Inj) 4 mg BRIDGE ORDER PRN IV NAUSEA/VOMITING; Start 07/26/18 at 09:30; Stop 07/27/18 at 09:29 Acetaminophen (Tylenol Tab) 650 mg ER BRIDGE PRN PO .MILD PAIN 1-3 OR TEMP; Start 07/26/18 at 09:30; Stop 07/27/18 at 09:29 Sodium Chloride 1,000 ml @ 80 mls/hr [id number] IV Last administered on 07/26/18at 11:41; Admin Dose 80 MLS/HR; Start 07/26/18 at 10:31 IV Flush (NS 3 ml) 3 ml PER PROTOCOL IV ; Start 07/26/18 at 11:00 Ondansetron HCl (Zofran Inj) 4 mg Q6H PRN IV NAUSEA/VOMITING; Start 07/26/18 at 11:00 Acetaminophen/ Hydrocodone Bitart ([place] (5/325)) 1 tab Q6H PRN PO .MOD PAIN 4- 6; Start 07/26/18 at 11:00 Morphine Sulfate (morphine) 2 mg Q4H PRN IV .SEVERE PAIN 7-10; Start 07/26/18 at 11:00 Pantoprazole (Protonix Iv) 40 mg DAILY@06 IV ; Start 07/27/18 at 06:00 MIRIAN CRAWFORD July 26, 2018 15:32
[2018-07-26] MEDS ORDERED: INDOMETHACIN 50 MG SUPP PR ONE (17:00)
[2018-07-26 20:15] VITALS: BP 132/70; PULSE 89; RESP 18
[2018-07-26] MEDS: HYDROCODONE/APAP (5/325) TAB PO PRN (20:25)
[2018-07-27] VITALS (7 sets, daily range): BP systolic 122–156; BP diastolic 66–81; PULSE 61–92; RESP 10–19
[2018-07-27] MEDS: PANTOPRAZOLE 40 MG INJ IV SCH (06:01)
[2018-07-27] MEDS ORDERED: SUCCINYLCHOLINE CHLORIDE 100 MG/5 ML SYG IV ONE (07:00)
[2018-07-27] MEDS ORDERED: DESFLURANE 15 MIN ONE (07:00)
--- NOTE | 2018-07-27 10:06 | QN ---
Documentation Comment MRCP suggests a 6 mm common duct stone Patient still symptomatic LFTs are still abnormal Plan: GI follow-up for consideration of ERCP Cholecystectomy when CBD cleared PASCUAL BECKETT MD July 27, 2018 10:06
[2018-07-27] MEDS: SOD CHLORIDE 0.45% 1,000 ML IV SCH ×2 (11:31→20:02)
--- NOTE | 2018-07-27 12:29 | PN ---
Date/Time of Note Date/Time of Note DATE: 07/27/18 TIME: 12:22 Assessment/Plan VTE Prophylaxis Risk score (from Nsg)>0 risk: 0 SCD applied (from Nsg): Yes Pharmacological prophylaxis: NA/contraindicated Pharm contraindication: low risk/ambulating Lines/Catheters IV Catheter Type (from Nrsg): Peripheral IV Assessment/Plan Assessment/Plan Obese 23 yo man presents with choledocholithiasis #Elevated AST/ALT #Gallstones #Choledocholithiasis - Failed outpatient management for elective cholecystectomy - MRCP with 6 mm stone in CBD. - Plan for ERCP today. - Dr. Jean Baptiste consulted for cholecystectomy afterwards - Cont empiric Zosyn - IV fluids, opioid analgesia. #Chest pain - Now resolved - Trop neg, EKG without ischemia. #Morbid obesity #Dyslipidemia - Triglycerides very elevated. Patient should resume his home cholesterol med after discharge. DVT: SCDs GI: PPI Result Diagram: 07/27/18 0547 07/27/18 0547 Subjective 24 Hr Interval Summary Free Text/Dictation No acute overnight events. Plan for ERCP today. Exam/Review of Systems Exam Vitals Vital Signs Date Temp Pulse Resp B/P (MAP) Pulse Ox O2 O2 Flow FiO2 Time Delivery Rate 07/27/18 98.1 75 18 139/71 94 Room Air 07:41 (93) Intake and Output 07/26/18 07/26/18 07/27/18 1515:00 23:00 07:00 IntakeIntake Total 500 ml 100 ml BalanceBalance 500 ml 100 ml Exam Gen: Obese man well appearing no acute distress. Eyes: PERRL, no icterus HEENT: Moist mucous membranes, clear oropharynx Neck: No lymphadenopathy or masses. Very wide circumference. Card: Regular rate and rhythm, no murmurs Pulm: Clear to auscultation bilaterally. Abd: Moderate RUQ tenderness to palpation, mild epigastric tenderness. Otherwise soft, obese, nondistended. No palpable splenomegaly. Ext: No LE edema. Skin: warm, dry, well perfused. Results Results 24hrs Laboratory Tests Test 07/27/18 05:47 White Blood Count 9.6 # Red Blood Count 5.28 Hemoglobin 13.9 L Hematocrit 44.0 Mean Corpuscular Volume 83.3 Mean Corpuscular Hemoglobin 26.3 L Mean Corpuscular Hemoglobin Concent 31.6 L Red Cell Distribution Width 13.5 Platelet Count 319 Mean Platelet Volume 10.3 Immature Granulocytes % 0.600 H Neutrophils % 72.0 Lymphocytes % 17.5 Monocytes % 7.4 Eosinophils % 2.0 Basophils % 0.5 Nucleated Red Blood Cells % 0.0 Immature Granulocytes # 0.060 H Neutrophils # 6.9 Lymphocytes # 1.7 Monocytes # 0.7 Eosinophils # 0.2 Basophils # 0.1 Nucleated Red Blood Cells # 0.0 Sodium Level 144 Potassium Level 3.8 Chloride Level 105 Carbon Dioxide Level 32 H Anion Gap 7 Blood Urea Nitrogen 10 Creatinine 1.13 Est Glomerular Filtrat Rate mL/min > 60 Glucose Level 108 Hemoglobin A1c 5.8 Calcium Level 9.5 Phosphorus Level 4.4 Magnesium Level 2.1 Total Bilirubin 2.4 H Direct Bilirubin 1.10 #H Indirect Bilirubin 1.3 H Aspartate Amino Transf (AST/SGOT) 320 H Alanine Aminotransferase (ALT/SGPT) 398 H Alkaline Phosphatase 186 H Total Protein 7.5 Albumin 4.1 Globulin 3.40 H Albumin/Globulin Ratio 1.20 Triglycerides Level 298 H Cholesterol Level 174 LDL Cholesterol, Calculated 84 HDL Cholesterol 30 Cholesterol/HDL Ratio 5.8 Thyroid Stimulating Hormone (TSH) 0.986 Medications Medication Current Medications Sodium Chloride 1,000 ml @ 80 mls/hr [id number] IV Last administered on 07/26/18at 11:41; Admin Dose 80 MLS/HR; Start 07/26/18 at 10:31 IV Flush (NS 3 ml) 3 ml PER PROTOCOL IV ; Start 07/26/18 at 11:00 Ondansetron HCl (Zofran Inj) 4 mg Q6H PRN IV NAUSEA/VOMITING; Start 07/26/18 at 11:00 Acetaminophen/ Hydrocodone Bitart ([place] (5/325)) 1 tab Q6H PRN PO .MOD PAIN 4- 6 Last administered on 07/26/18at 20:25; Admin Dose 1 TAB; Start 07/26/18 at 11:00 Morphine Sulfate (morphine) 2 mg Q4H PRN IV .SEVERE PAIN 7-10; Start 07/26/18 at 11:00 Pantoprazole (Protonix Iv) 40 mg DAILY@06 IV Last administered on 07/27/18at 06:01; Admin Dose 40 MG; Start 07/27/18 at 06:00 POLLY DICKSON MD July 27, 2018 12:29
--- NOTE | 2018-07-27 14:49 | PREAC ---
Date/Time of Note Date/Time of Note DATE: 07/27/18 TIME: 14:46 Anesthesia Eval and Record Evaluation Time Pre-Procedure Interview DATE: 07/27/18 TIME: 14:46 Age 23 Sex male NPO: 8 hrs Preoperative diagnosis choledocholithiasis Planned procedure ERCP Past Medical History Past Medical History: Includes Cardio: Dyslipidemia GI: Morbid obesity Surgery & Anesthesia Issues No known issue Meds Anticoagulation: No Beta [place] within 24 hr: No Reason Beta [place] not given: Pt. not on B-[place] Reported Medications Famotidine* (Famotidine*) 20 Mg Tablet, 20 MG PO BID, #60 TAB 07/26/18 Discontinued Scripts Hydrocodone/Acetaminophen ([place] 5-325 Tablet) 1 Each Tablet, 1 TAB PO Q6H PRN for PAIN, #7 TAB Prov:THEA LY PA-C 07/23/18 Metronidazole* (Flagyl*) 500 Mg Tablet, 500 MG PO TID for cholithiasis with wall thicken for 5 Days, #15 TAB Prov:SILVIA SWENSON DO 07/09/18 Ciprofloxacin Hcl* (Ciprofloxacin Hcl*) 500 Mg Tablet, 500 MG PO BID for chol ecystitis, #10 TAB Prov:SILVIA SWENSON DO 07/09/18 Acetaminophen* (Acetaminophen*) 500 MG Extra Strength Tablet, 500 MG PO Q4H PRN for PAIN AND OR ELEVATED TEMP, #30 TAB Prov:SILVIA SWENSON DO 07/09/18 Magaldrate/Simethicone* (Mylanta*) 355 Ml Susp, 30 ML PO QID PRN for GASTROINTESTINAL UPSET, #1 BOTTLE Prov:SILVIA SWENSON DO 07/09/18 Ibuprofen* (Motrin*) 400 Mg Tab, 400 MG PO Q6H PRN for PAIN AND OR ELEVATED TEMP, #30 TAB Prov:SILVIA SWENSON DO 07/09/18 Famotidine* (Famotidine*) 20 Mg Tablet, 20 MG PO DAILY, #30 TAB Prov:CORTEZ SPEARS PA-C 06/23/18 Naproxen* (Naprosyn*) 500 Mg Tablet, 500 MG PO BID PRN for PAIN AND/OR INFLAMMATION, #30 TAB Prov:MERI LIM PA-C 04/25/18 Famotidine* (Pepcid*) 20 Mg Tablet, 20 MG PO BID for 4 Days, TAB Prov:MERI LIM PA-C 04/25/18 Famotidine* (Pepcid*) 20 Mg Tablet, 20 MG PO BID for pain for 15 Days, #30 TAB 0 Refills Prov:KRISTEL WAYNE 03/09/18 Hydrocodone/Acetaminophen ([place] 7.5-325 Tablet) 1 Each Tablet, 1 EACH PO DAILY for pain for 7 Days, #7 TAB 0 Refills Prov:KRISTEL WAYNE 03/09/18 Albuterol Sulfate* (Ventolin HFA*) 18 Gm Hfa.aer.ad, 2 PUFF INHALATION Q4H, #1 INHALER Prov:DARIEN,NICO 02/10/18 Azithromycin* (Zithromax*) 250 Mg Tablet, 250 MG PO .OctavioPACK DIRECTED, #6 TAB TAKE 500 MG (2 TABS) THE FIRST DAY THEN 250 MG (1 TAB) DAYS 2-5 Prov:DARIEN,NICO 02/10/18 Current Medications Sodium Chloride 1,000 ml @ 80 mls/hr [id number] IV Last administered on 07/26/18at 11:41; Admin Dose 80 MLS/HR; Start 07/26/18 at 10:31 IV Flush (NS 3 ml) 3 ml PER PROTOCOL IV ; Start 07/26/18 at 11:00 Ondansetron HCl (Zofran Inj) 4 mg Q6H PRN IV NAUSEA/VOMITING; Start 07/26/18 at 11:00 Acetaminophen/ Hydrocodone Bitart ([place] (5/325)) 1 tab Q6H PRN PO .MOD PAIN 4- 6 Last administered on 07/26/18at 20:25; Admin Dose 1 TAB; Start 07/26/18 at 11:00 Morphine Sulfate (morphine) 2 mg Q4H PRN IV .SEVERE PAIN 7-10; Start 07/26/18 at 11:00 Pantoprazole (Protonix Iv) 40 mg DAILY@06 IV Last administered on 07/27/18at 06:01; Admin Dose 40 MG; Start 07/27/18 at 06:00 Meds reviewed: Yes Allergies Coded Allergies: No Known Allergy (Unverified , 07/26/18) Allergies Reviewed: Yes Labs/Studies Labs Reviewed: Reviewed by anesthesiologist Result Diagram: 07/27/18 0547 07/27/18 0547 Laboratory Tests 07/27/18 05:47 test: Negative Studies: ECG (SB w/ Sinus arrhythmia, borderline ECG) Pre-procedure Exam Last vitals Vital Signs Date Temp Pulse Resp B/P (MAP) Pulse Ox O2 O2 Flow FiO2 Time Delivery Rate 07/27/18 97.1 79 16 122/66 96 Room Air 13:46 (84) Airway: Adequate mouth opening, Adequate thyromental dist Mallampati: Mallampati II Teeth: Normal Lung: Normal Heart: Normal ASA Physical Status ASA physical status: 3 Emergency: E Planned Anesthetic General/MAC: ETT Pre-operative Attestations Prior to commencing anesthesia and surgery, the patient was re-evaluated, there was verification of: *The patient's identity *The results of appropriate recent lab work and preoperative vital signs *The above evaluation not changing prior to induction *Anesthetic plan, risk benefits, alternative and complications discussed with patient/family; questions answered; patient/family understands, accepts and wishes to proceed. SONAM ESTEVEZ July 27, 2018 14:49
[2018-07-27] MEDS ORDERED: IOHEXOL 300MG/ML 30 ML BTL ONE (16:06)
--- NOTE | 2018-07-27 16:13 | HPN ---
Date/Time of Note Date/Time of Note DATE: 07/27/18 TIME: 16:13 Interval H&P Admission Note Pt. seen H&P reviewed: No system changes KANNAN ULLOA July 27, 2018 16:13
[2018-07-27] MEDS ORDERED: ROCURONIUM 50 MG INJ ONE (16:33)
[2018-07-27] MEDS ORDERED: PROPOFOL 20 ML ONE (16:33)
[2018-07-27] MEDS ORDERED: NEOSTIGMINE 3 MG/3 ML SYRINGE ONE (16:33)
[2018-07-27] MEDS ORDERED: FENTAnyl 50 MCG/ML VIAL ONE (16:33)
[2018-07-27] MEDS ORDERED: GLYCOPYRROLATE 0.4 MG INJ ONE (16:33)
[2018-07-27] MEDS ORDERED: CEFAZOLIN 1 GM INJ ONE (16:33)
[2018-07-27] MEDS ORDERED: DEXAMETHASONE 4 MG/ML 5 ML INJ ONE (16:34)
[2018-07-27] MEDS ORDERED: ONDANSETRON 4 MG INJ ONE (16:34)
[2018-07-27] MEDS ORDERED: MIDAZOLAM 1 MG/ML 2 ML INJ ONE (16:34)
[2018-07-27] MEDS ORDERED: EPHEDrine SULFATE 50 MG/5 ML SYG IV PRN (17:00)
[2018-07-27] MEDS ORDERED: FENTAnyl 50 MCG/ML VIAL IV PRN ×3 (17:00)
[2018-07-27] MEDS ORDERED: ALBUTEROL 0.083% (NEB) 2.5 MG/3 ML AMP HHN PRN (17:00)
[2018-07-27] MEDS ORDERED: MIDAZOLAM 1 MG/ML 2 ML INJ IV PRN (17:00)
[2018-07-27] MEDS ORDERED: HYDROmorphONE 1 MG/5 ML IV SYRINGE IV PRN ×3 (17:00)
[2018-07-27] MEDS ORDERED: hydrALAzine 20 MG INJ IV PRN (17:00)
[2018-07-27] MEDS ORDERED: LABETALOL HCL 20MG INJ IV PRN (17:00)
[2018-07-27] MEDS ORDERED: ONDANSETRON 4 MG INJ IV PRN (17:00)
[2018-07-27] MEDS ORDERED: OXYCODONE/ACETAMINOPHEN (5/325) TAB PO PRN ×2 (17:00)
[2018-07-27] MEDS ORDERED: MEPERIDINE 25 MG INJ IV PRN (17:00)
[2018-07-27] MEDS ORDERED: TRIMETHOBENZAMIDE 100 MG/ML VIAL IM PRN (17:00)
[2018-07-27] MEDS ORDERED: IPRATROPIUM (NEB) 0.5 MG/2.5 ML AMP HHN PRN (17:00)
[2018-07-27] MEDS ORDERED: DIPHENHYDRAMINE 50 MG INJ IV PRN (17:00)
[2018-07-27] MEDS ORDERED: SUGAMMADEX SODIUM 200 MG/2 ML VIAL IV ONE (17:11)
--- NOTE | 2018-07-27 17:29 | PAC ---
Date/Time of Note Date/Time of Note DATE: 07/27/18 TIME: 17:29 Post-Anesthesia Notes Post-Anesthesia Note Last documented vital signs Vital Signs Date Temp Pulse Resp B/P (MAP) Pulse Ox O2 O2 Flow FiO2 Time Delivery Rate 07/27/18 97.1 79 16 122/66 96 Room Air 13:46 (84) Activity: WNL Respiratory function: WNL Cardiovascular function: WNL Mental status: Baseline Pain reasonably controlled: Yes Hydration appropriate: Yes Nausea/Vomiting absent: Yes Leonardo Lim M.D. July 27, 2018 17:29
[2018-07-28] VITALS (22 sets, daily range): BP systolic 125–166; BP diastolic 66–93; PULSE 66–88; RESP 15–19
[2018-07-28] MEDS: PANTOPRAZOLE 40 MG INJ IV SCH (05:55)
--- NOTE | 2018-07-28 07:44 | HPN ---
Date/Time of Note Date/Time of Note DATE: 07/28/18 TIME: 07:43 Interval H&P Admission Note Pt. seen H&P reviewed: Systems changes noted below Patient is 1 day status post ERCP with successful stone extraction PASCUAL BECKETT MD July 28, 2018 07:44
[2018-07-28] MEDS ORDERED: BUPIVACAINE 0.25% (MPF) 30 ML INJ ONE (07:52)
--- NOTE | 2018-07-28 08:05 | PREAC ---
Date/Time of Note Date/Time of Note DATE: 07/28/18 TIME: 08:03 Anesthesia Eval and Record Evaluation Time Pre-Procedure Interview DATE: 07/28/18 TIME: 08:03 Age 23 Sex male NPO: 4 hrs Preoperative diagnosis ac cholecystitis Planned procedure lap glen Past Medical History Past Medical History: None GI: Obesity Surgery & Anesthesia Issues No known issue Meds Anticoagulation: No Beta [place] within 24 hr: No Reason Beta [place] not given: Pt. not on B-[place] Reported Medications Famotidine* (Famotidine*) 20 Mg Tablet, 20 MG PO BID, #60 TAB 07/26/18 Discontinued Scripts Hydrocodone/Acetaminophen ([place] 5-325 Tablet) 1 Each Tablet, 1 TAB PO Q6H PRN for PAIN, #7 TAB Prov:THEA LY PA-C 07/23/18 Metronidazole* (Flagyl*) 500 Mg Tablet, 500 MG PO TID for cholithiasis with wall thicken for 5 Days, #15 TAB Prov:SILVIA SWENSON DO 07/09/18 Ciprofloxacin Hcl* (Ciprofloxacin Hcl*) 500 Mg Tablet, 500 MG PO BID for cholecystitis, #10 TAB Prov:SILVIA SWENSON DO 07/09/18 Acetaminophen* (Acetaminophen*) 500 MG Extra Strength Tablet, 500 MG PO Q4H PRN for PAIN AND OR ELEVATED TEMP, #30 TAB Prov:SILVIA SWENSON DO 07/09/18 Magaldrate/Simethicone* (Mylanta*) 355 Ml Susp, 30 ML PO QID PRN for GASTROINTESTINAL UPSET, #1 BOTTLE Prov:SILVIA WSENSON DO 07/09/18 Ibuprofen* (Motrin*) 400 Mg Tab, 400 MG PO Q6H PRN for PAIN AND OR ELEVATED TEMP, #30 TAB Prov:SILVIA SWENSON DO 07/09/18 Famotidine* (Famotidine*) 20 Mg Tablet, 20 MG PO DAILY, #30 TAB Prov:CORTEZ SPEARS PA-C 06/23/18 Naproxen* (Naprosyn*) 500 Mg Tablet, 500 MG PO BID PRN for PAIN AND/OR INFLAMMATION, #30 TAB Prov:MERI LIM PA-C 04/25/18 Famotidine* (Pepcid*) 20 Mg Tablet, 20 MG PO BID for 4 Days, TAB Prov:MERI LIM PA-C 04/25/18 Famotidine* (Pepcid*) 20 Mg Tablet, 20 MG PO BID for pain for 15 Days, #30 TAB 0 Refills Prov:KRISTEL WAYNE 03/09/18 Hydrocodone/Acetaminophen ([place] 7.5-325 Tablet) 1 Each Tablet, 1 EACH PO DAILY for pain for 7 Days, #7 TAB 0 Refills Prov:KRISTEL WAYNE 03/09/18 Albuterol Sulfate* (Ventolin HFA*) 18 Gm Hfa.aer.ad, 2 PUFF INHALATION Q4H, #1 INHALER Prov:DARIEN,NICO 02/10/18 Azithromycin* (Zithromax*) 250 Mg Tablet, 250 MG PO .OctavioPACK DIRECTED, #6 TAB TAKE 500 MG (2 TABS) THE FIRST DAY THEN 250 MG (1 TAB) DAYS 2-5 Prov:DARIEN,NICO 02/10/18 Current Medications Sodium Chloride 1,000 ml @ 80 mls/hr [id number] IV Last administered on 07/27/18at 20:02; Admin Dose 80 MLS/HR; Start 07/26/18 at 10:31 IV Flush (NS 3 ml) 3 ml PER PROTOCOL IV ; Start 07/26/18 at 11:00 Ondansetron HCl (Zofran Inj) 4 mg Q6H PRN IV NAUSEA/VOMITING; Start 07/26/18 at 11:00 Acetaminophen/ Hydrocodone Bitart ([place] (5/325)) 1 tab Q6H PRN PO .MOD PAIN 4- 6 Last administered on 07/26/18at 20:25; Admin Dose 1 TAB; Start 07/26/18 at 11:00 Morphine Sulfate (morphine) 2 mg Q4H PRN IV .SEVERE PAIN 7-10; Start 07/26/18 at 11:00 Pantoprazole (Protonix Iv) 40 mg DAILY@06 IV Last administered on 07/28/18at 05:55; Admin Dose 40 MG; Start 07/27/18 at 06:00 Meds reviewed: Yes Allergies Coded Allergies: No Known Allergy (Unverified , 07/26/18) Allergies Reviewed: No Labs/Studies Labs Reviewed: Reviewed by anesthesiologist Result Diagram: 07/27/18 0547 07/27/1847 test: Negative Pre-procedure Exam Last vitals Vital Signs Date Temp Pulse Resp B/P (MAP) Pulse Ox O2 O2 Flow FiO2 Time Delivery Rate 07/28/18 97.5 79 18 126/71 95 02:15 (89) 07/27/18 Nasal 2.0 17:31 Cannula Airway: Adequate mouth opening Mallampati: Mallampati II Teeth: Normal Lung: Normal Heart: Normal Anticipated Difficutly with IV: Anticipate Difficult IV Access ASA Physical Status ASA physical status: 3 Emergency: None Planned Anesthetic General/MAC: ETT Pre-operative Attestations Prior to commencing anesthesia and surgery, the patient was re-evaluated, there was verification of: *The patient's identity *The results of appropriate recent lab work and preoperative vital signs *The above evaluation not changing prior to induction *Anesthetic plan, risk benefits, alternative and complications discussed with patient/family; questions answered; patient/family understands, accepts and wis hes to proceed. PHANI MCNAMARA MD July 28, 2018 08:05
[2018-07-28] MEDS ORDERED: MEPERIDINE 25 MG INJ IV PRN (09:00)
[2018-07-28] MEDS ORDERED: DIPHENHYDRAMINE 50 MG INJ IV PRN (09:00)
[2018-07-28] MEDS ORDERED: LABETALOL HCL 20MG INJ IV PRN (09:00)
[2018-07-28] MEDS ORDERED: HYDROmorphONE 1 MG/5 ML IV SYRINGE IV PRN ×2 (09:00)
[2018-07-28] MEDS ORDERED: hydrALAzine 20 MG INJ IV PRN (09:00)
[2018-07-28] MEDS ORDERED: ONDANSETRON 4 MG INJ IV PRN ×2 (09:00→09:30)
--- NOTE | 2018-07-28 09:26 | OPR ---
Date/Time of Note Date/Time of Note DATE: 07/28/18 TIME: 09:21 Operative Report Procedure Date: July 28, 2018 Preoperative Diagnosis Cholecystitis and cholelithiasis Postoperative Diagnosis Cholecystitis and cholelithiasis Operation/Procedure Performed Laparoscopic cholecystectomy Surgeon Pascual Beckett MD Hand Spring Repairer Helper None Anesthesia Type: general Anesthesiologist: PHANI MCNAMARA MD Estimated Blood Loss: other (Approximately 30 cc) Transfusion none Specimen Gallbladder Grafts/Implants none Tubes/Drains None Complications none Pt Condition Post Procedure: stable Disposition: PACU Indications Patient is 1 day status post successful ERCP with stone extraction. He is now here for completion cholecystectomy. Procedure Description After satisfactory general endotracheal anesthesia was achieved, the abdomen was prepped and draped in the usual fashion. The abdomen was insufflated with carbon dioxide through an umbilical Veress needle to 15 mmHg pressure. The Veress needle was removed and the umbilical incision extended to 5 mm through which a 5 mm trocar was placed. A 5 mm 0 degree lens was placed. Laparoscopy showed a chronically inflamed gallbladder covered with omental adhesions. Under direct visualization an 11 mm epigastric trocar was placed as well as 2 more 5 mm right lateral abdominal trochars. The dome of the gallbladder was grasped and retracted superiorly. Omental adhesions were taken down with careful blunt and electrocautery dissection down to the infundibulum of the gallbladder. This was also dissected free of adhesions and then grasped and retracted inferolaterally. The hepatoduodenal ligament was carefully dissected between the gallbladder and the well-visualized scarlett hepatis. The cystic duct was dissected circumferentially and then triply hemoclipped high at the junction of the gallbladder and the cystic duct. The cystic artery was identified immediately posteriorly this was divided over a clip. 2 more peritoneal attachments to the gallbladder were divided over a clip. The gallbladder was then dissected from below using electrocautery dissection and placed fully in tact into an Endo Catch removed via the epigastric route. Hemostasis of the liver bed was total and irrigant returned clear. 2 0 fascial sutures were placed at the 11 mm port site with the assistance of a young-close device. The abdomen was then desufflated and all trochars were removed. The fascial sutures were tied down. The skin punctures were infiltrated with 30 cc of 0.25% Marcaine with epinephrine and closed with robert. Sponge and needle counts were reported as correct x2. PASCUAL BECKETT MD July 28, 2018 09:26
[2018-07-28] MEDS ORDERED: OXYCODONE/ACETAMINOPHEN (5/325) TAB PO PRN ×2 (09:30)
[2018-07-28] MEDS ORDERED: morphine 2 MG INJ IV PRN (09:30)
[2018-07-28] MEDS ORDERED: ACETAMINOPHEN 1000MG/100ML IV 100 ML IVPB ONE (10:00)
--- NOTE | 2018-07-28 11:00 | PAC ---
Date/Time of Note Date/Time of Note DATE: 07/28/18 TIME: 10:59 Post-Anesthesia Notes Post-Anesthesia Note Last documented vital signs Vital Signs Date Temp Pulse Resp B/P (MAP) Pulse Ox O2 O2 Flow FiO2 Time Delivery Rate 07/28/18 76 15 140/82 96 Room Air 10:29 (101) 07/28/18 98.0 09:35 07/28/18 6.0 09:30 Activity: WNL Respiratory function: WNL Cardiovascular function: WNL Mental status: Baseline Pain reasonably controlled: Yes Hydration appropriate: Yes Nausea/Vomiting absent: Yes PHANI MCNAMARA MD July 28, 2018 11:00
[2018-07-28] MEDS: SOD CHLORIDE 0.45% 1,000 ML IV SCH (11:47)
[2018-07-28] MEDS: morphine 2 MG INJ IV PRN ×2 (12:19→20:01)
--- NOTE | 2018-07-28 12:28 | PN ---
Date/Time of Note Date/Time of Note DATE: 07/28/18 TIME: 12:24 Assessment/Plan VTE Prophylaxis Risk score (from Nsg)>0 risk: 2 SCD applied (from Ns): Yes Pharmacological prophylaxis: NA/contraindicated Pharm contraindication: low risk/ambulating Lines/Catheters IV [facility] ([facility] Peripheral IV Assessment/Plan Assessment/Plan Obese 23 yo man presents with choledocholithiasis #Elevated AST/ALT #Gallstones #Choledocholithiasis - Failed outpatient management for elective cholecystectomy - MRCP with 6 mm stone in CBD. - s/p ERCP with sphincterotomy by Dr. Horne. - cholecystectomy by Dr. Jean Baptiste - Cont empiric Zosyn for now, plan to stop within 24-48 hours or on discharge. - Resume diet. #Chest pain - Now resolved - Trop neg, EKG without ischemia. #Morbid obesity #Dyslipidemia - Triglycerides very elevated. Patient should resume his home cholesterol med after discharge. DVT: SCDs GI: PPI Result Diagram: 07/27/18 0547 07/27/1847 Subjective 24 Hr Interval Summary Free Text/Dictation Went for ERCP last night. Got sphincterotomy and stone removal. This morning went for cholecystectomy. On my exam patient is drowsy, pain well controlled. Exam/Review of Systems Exam Vitals Vital Signs Date Temp Pulse Resp B/P (MAP) Pulse Ox O2 O2 Flow FiO2 Time Delivery Rate 07/28/18 76 15 140/82 96 Room Air 10:29 (101) 07/28/18 98.0 09:35 07/28/18 6.0 09:30 Intake and Output 07/27/18 07/27/18 07/28/18 1515:00 23:00 07:00 IntakeIntake Total 0 ml 750 ml BalanceBalance 0 ml 750 ml Exam Gen: Obese man well appearing no acute distress. Eyes: PERRL, no icterus HEENT: Moist mucous membranes, clear oropharynx Neck: No lymphadenopathy or masses. Very wide circumference. Card: Regular rate and rhythm, no murmurs Pulm: Clear to auscultation bilaterally. Abd: Moderate RUQ tenderness to palpation, mild epigastric tenderness. Otherwise soft, obese, nondistended. No palpable splenomegaly. Ext: No LE edema. Skin: warm, dry, well perfused. Medications Medication Current Medications Sodium Chloride 1,000 ml @ 80 mls/hr [id number] IV Last administered on 07/28/18at 11:47; Admin Dose 80 MLS/HR; Start 07/26/18 at 10:31 IV Flush (NS 3 ml) 3 ml PER PROTOCOL IV ; Start 07/26/18 at 11:00 Ondansetron HCl (Zofran Inj) 4 mg Q6H PRN IV NAUSEA/VOMITING; Start 07/26/18 at 11:00 Acetaminophen/ Hydrocodone Bitart ([place] (5/325)) 1 tab Q6H PRN PO .MOD PAIN 4- 6 Last administered on 07/26/18at 20:25; Admin Dose 1 TAB; Start 07/26/18 at 11:00 Morphine Sulfate (morphine) 2 mg Q4H PRN IV .SEVERE PAIN 7-10 Last administered on 07/28/18 12:19; Admin Dose 2 MG; Start 07/26/18 at 11:00 Pantoprazole (Protonix Iv) 40 mg DAILY@06 IV Last administered on 07/28/18at 05:55; Admin Dose 40 MG; Start 07/27/18 at 06:00 Hydromorphone HCl (Dilaudid) 0.2 mg PACU PRN IV MILD PAIN 1-3 Last administered on 07/28/18at 09:51; Admin Dose 0.2 MG; Start 07/28/18 at 09:00; Stop 07/28/18 at 17:00 Hydromorphone HCl (Dilaudid) 0.4 mg PACU PRN IV MOD PAIN 4-6 Last administered o n 07/28/18at 09:37; Admin Dose 0.4 MG; Start 07/28/18 at 09:00; Stop 07/28/18 at 17:00 Ondansetron HCl (Zofran Inj) 4 mg PACU ORDER PRN IV NAUSEA/VOMITING Last administered on 07/28/18 09:37; Admin Dose 4 MG; Start 07/28/18 at 09:00; Stop 07/28/18 at 18:00 Labetalol HCl (Labetalol) 5 mg PACU ORDER PRN IV HIGH BLOOD PRESSURE; Start 07/28/18 at 09:00; Stop 07/28/18 at 18:00 Hydralazine HCl (Apresoline) 5 mg PACU ORDER PRN IV HIGH BLOOD PRESSURE; Start 07/28/18 at 09:00; Stop 07/28/18 at 18:00 Meperidine HCl (Demerol) 25 mg PACU ORDER PRN IV .RIGORS Last administered on 07/28/18at 09:37; Admin Dose 25 MG; Start 07/28/18 at 09:00; Stop 07/28/18 at 18:00 Diphenhydramine HCl (Benadryl) 25 mg PACU ORDER PRN IV .PRURITUS; Start 07/28/18 at 09:00; Stop 07/28/18 at 18:00 Oxycodone/ Acetaminophen (Percocet (5/ 325)) 1 tab Q4H PRN PO .MILD PAIN (1-3); Start 07/28/18 at 09:30 Oxycodone/ Acetaminophen (Percocet (5/ 325)) 2 tab Q4H PRN PO .MODERATE PAIN (4-6); Start 07/28/18 at 09:30 Ondansetron HCl (Zofran Inj) 4 mg Q6H PRN IV NAUSEA/VOMITING; Start 07/28/18 at 09:30 POLLY DICKSON MD July 28, 2018 12:28
[2018-07-29] MEDS: SOD CHLORIDE 0.45% 1,000 ML IV SCH ×4 (01:01→22:35)
[2018-07-29] MEDS: morphine 2 MG INJ IV PRN ×2 (01:58→10:22)
[2018-07-29 02:00] VITALS: BP 121/59; PULSE 108; RESP 18
[2018-07-29] MEDS: PANTOPRAZOLE 40 MG INJ IV SCH (05:17)
[2018-07-29 08:09] VITALS: BP 127/66; PULSE 96; RESP 18
--- NOTE | 2018-07-29 10:56 | QN ---
Documentation Comment Postoperative day #1 Markedly symptomatically improved Abdominal examination is benign LFTs are normal Plan: Cleared for discharge home today. Office follow-up 1 week for staple removal PASCUAL BECKETT MD July 29, 2018 10:56
[2018-07-29 14:04] VITALS: BP 128/71; PULSE 88; RESP 17
--- NOTE | 2018-07-29 15:58 | PN ---
Date/Time of Note Date/Time of Note DATE: 07/29/18 TIME: 15:56 Assessment/Plan VTE Prophylaxis Risk score (from Ns)>0 risk: 3 SCD applied (from Ns): No SCD contraindicated: other (not contraindicated) Pharmacological prophylaxis: NA/contraindicated Pharm contraindication: low risk/ambulating Lines/Catheters [facility] ([facility]): Peripheral IV Assessment/Plan Assessment/Plan Obese 23 yo man presents with choledocholithiasis #Elevated AST/ALT #Gallstones #Choledocholithiasis - Failed outpatient management for elective cholecystectomy - MRCP with 6 mm stone in CBD. - s/p ERCP with sphincterotomy by Dr. Horne. - cholecystectomy by Dr. Jean Baptiste - Cont empiric Zosyn for now, plan to stop within 24-48 hours or on discharge. - Tolerating diet. #Chest pain - Now resolved - Trop neg, EKG without ischemia. #Morbid obesity #Dyslipidemia - Triglycerides very elevated. Patient should resume his home cholesterol med after discharge. DVT: SCDs GI: PPI Dispo: Anticipate discharge tomorrow AM. Result Diagram: 07/29/18 0707 07/29/18 0707 Subjective 24 Hr Interval Summary Free Text/Dictation Today, complaining of diffuse arm and leg cramps. Post-surgical pain well controlled. He is too fatigued to go home and wants to stay in the hospital. Exam/Review of Systems Exam Vitals Vital Signs Date Temp Pulse Resp B/P (MAP) Pulse Ox O2 O2 Flow FiO2 Time Delivery Rate 07/29/18 98.8 88 17 128/71 97 14:04 (90) 07/28/18 Room Air 12:00 07/28/18 6.0 09:30 Intake and Output 07/28/18 07/28/18 07/29/18 1515:00 23:00 07:00 IntakeIntake Total 1150 ml 1390 ml 50 ml OutputOutput Total 20 ml 600 ml BalanceBalance 1130 ml 790 ml 50 ml Exam Gen: Obese man well appearing no acute distress. Eyes: PERRL, no icterus HEENT: Moist mucous membranes, clear oropharynx Neck: No lymphadenopathy or masses. Very wide circumference. Card: Regular rate and rhythm, no murmurs Pulm: Clear to auscultation bilaterally. Abd: Surgical incisions still bandaged, not bleeding. Abdomen soft. Ext: No LE edema. Skin: warm, dry, well perfused. Results Results 24hrs Laboratory Tests Test 07/29/18 07:07 White Blood Count 9.8 Red Blood Count 4.94 Hemoglobin 12.9 L Hematocrit 41.3 L Mean Corpuscular Volume 83.6 Mean Corpuscular Hemoglobin 26.1 L Mean Corpuscular Hemoglobin Concent 31.2 L Red Cell Distribution Width 13.9 Platelet Count 291 Mean Platelet Volume 10.5 H Immature Granulocytes % 0.600 H Neutrophils % 64.9 Lymphocytes % 27.8 Monocytes % 5.4 Eosinophils % 0.9 Basophils % 0.4 Nucleated Red Blood Cells % 0.0 Immature Granulocytes # 0.060 H Neutrophils # 6.4 Lymphocytes # 2.7 Monocytes # 0.5 Eosinophils # 0.1 Basophils # 0.0 Nucleated Red Blood Cells # 0.0 Sodium Level 143 Potassium Level 3.5 Chloride Level 103 Carbon Dioxide Level 29 Anion Gap 11 Blood Urea Nitrogen 15 Creatinine 1.00 Est Glomerular Filtrat Rate mL/min > 60 Glucose Level 98 Calcium Level 9.0 Total Bilirubin 0.7 Direct Bilirubin 0.00 Indirect Bilirubin 0.7 Aspartate Amino Transf (AST/SGOT) 183 H Alanine Aminotransferase (ALT/SGPT) 285 H Alkaline Phosphatase 140 H Total Protein 6.8 Albumin 3.6 Globulin 3.20 Albumin/Globulin Ratio 1.12 Lipase 67 Medications Medication Current Medications Sodium Chloride 1,000 ml @ 80 mls/hr [id number] IV Last administered on 07/29/18at 05:17; Admin Dose 80 MLS/HR; Start 07/26/18 at 10:31 IV Flush (NS 3 ml) 3 ml PER PROTOCOL IV ; Start 07/26/18 at 11:00 Ondansetron HCl (Zofran Inj) 4 mg Q6H PRN IV NAUSEA/VOMITING; Start 07/26/18 at 11:00 Acetaminophen/ Hydrocodone Bitart ([place] (5/325)) 1 tab Q6H PRN PO .MOD PAIN 4- 6 Last administered on 07/26/18at 20:25; Admin Dose 1 TAB; Start 07/26/18 at 11:00 Pantoprazole (Protonix Iv) 40 mg DAILY@06 IV Last administered on 07/29/18at 05:17; Admin Dose 40 MG; Start 07/27/18 at 06:00 Oxycodone/ Acetaminophen (Percocet (5/ 325)) 1 tab Q4H PRN PO .MILD PAIN (1-3); Start 07/28/18 at 09:30 Oxycodone/ Acetaminophen (Percocet (5/ 325)) 2 tab Q4H PRN PO .MODERATE PAIN (4-6); Start 07/28/18 at 09:30 Ondansetron HCl (Zofran Inj) 4 mg Q6H PRN IV NAUSEA/VOMITING; Start 07/28/18 at 09:30 Simethicone (Mylicon) 80 mg Q6H PRN PO DISTENSION/GAS/BLOATING Last admi nistered on 07/29/18at 01:58; Admin Dose 80 MG; Start 07/28/18 at 17:00 POLLY DICKSON MD July 29, 2018 15:58
[2018-07-29] MEDS: HYDROCODONE/APAP (5/325) TAB PO PRN (20:22)
[2018-07-29 20:58] VITALS: BP 124/60; PULSE 96; RESP 18
[2018-07-30] MEDS: SOD CHLORIDE 0.45% 1,000 ML IV SCH (02:01)
[2018-07-30 02:30] VITALS: BP 119/67; PULSE 85; RESP 18
[2018-07-30] MEDS: PANTOPRAZOLE 40 MG INJ IV SCH (05:50)
[2018-07-30 07:35] VITALS: BP 114/68; PULSE 70; RESP 18
[2018-07-30] MEDS: HYDROCODONE/APAP (5/325) TAB PO PRN (08:01)
--- NOTE | 2018-07-30 11:57 | PDOCDIS ---
Discharge Instructions DIAGNOSIS Discharge Diagnosis Acute choledocholithiasis with chronic biliary colic. CONDITION [id number] Patient Condition: [id number] Good HOME CARE INSTRUCTIONS: [id number] Diet Instructions: [id number] Regular ACTIVITY: Lxaww2Hg Activity Restrictions: [id number] No Restrictions [id number] Bathing Restrictions: [id number] Shower FOLLOW UP/APPOINTMENTS Follow-up Plan 1. Avoid heavy lifting more than 20 lbs for 2 weeks. 2. Keep your incisions clean and dry. It's okay if the bandages come off. Okay to shower, pat dry. Avoid pools, tubs, and complete immersion in water until they are healed. 3. For pain, take [id number] ibuprofen 800mg every 6 hours or tylenol 650mg every 6 hours. Listen to your body and don't overexert yourself. POLLY DICKSON MD July 30, 2018 11:57
--- NOTE | 2018-07-30 15:35 | DS ---
Date/Time of Note Date/Time of Note DATE: 07/30/18 TIME: 15:31 Discharge Summary Admission/Discharge Info Admit Date/Time July 26, 2018 at 09:16 Discharge Date/Time July 30, 2018 at 13:15 Discharge Diagnosis Acute choledocholithiasis with chronic biliary colic. Patient Condition: Good Consults Dr. Montesinos, gastroenterology Dr. Jean Baptiste, general surgery Procedures 07/27 ERCP 07/28 Laparoscopic cholecystectomy Hx of Present Illness Mr. Mcallister is a 23 yo man with history of gallstones, biliary colic, and dyslipidemia who presents with RUQ pain. He has had five ED visits since Feb 2018 for this problem. He complains of RUQ and epigastric pressure-like and stabbing pain, sometimes radiating to the back, associated with nausea which occurs sporadically. Not necessarily associated with certain foods that he's noticed. He came to the ED 02/2018, 03/2018, 05/2018, 07/10, 07/23, and today 07/26 for this problem. Each time he was discharged with instructions to get an outpatient lap glen. On Sunday 07/23 the most recent episode started, he had an episode of NBNB vomiting. Saw his PMD on Monday 07/24 who gave him referral to a surgeon. He saw the surgeon 07/25 who told him he needed pre-op clearance and surgery may be scheduled at earliest late July. He had been taking [place] q6h around the clock for the pain for the last 3 days. This morning he noticed that moderate exertion like walking and also deep breaths worsened the pain. So he returned to the ED. In the ED he was afebrile, vitals unremarkable. Labs show AST/ALT in 400s and tbili 3.1. Normal WBC. US showed multiple gallstones and dilated CBD to 9 mm with no visible gallstones. Hospital Course MRCP showed a distal CBD stone. The patient was taken for ERCP by Dr. Montesinos, got sphincterotomy with stone removal. The morning afterwards was taken for lap glen by Dr. Jean Baptiste. Had unremarkable postoperative course. Ambulating, tolerating diet, pain well controlled. The patient will be discharged on tylenol and ibuprofen for pain only. Home Meds Reported Medications Famotidine* (Famotidine*) 20 Mg Tablet, 20 MG PO BID, #60 TAB 07/26/18 Discontinued Scripts Hydrocodone/Acetaminophen ([place] 5-325 Tablet) 1 Each Tablet, 1 TAB PO Q6H PRN for PAIN, #7 TAB Prov:THEA LY PA-C 07/23/18 Metronidazole* (Flagyl*) 500 Mg Tablet, 500 MG PO TID for cholithiasis with wall thicken for 5 Days, #15 TAB Prov:SWENSONSILVIA 07/09/18 Ciprofloxacin Hcl* (Ciprofloxacin Hcl*) 500 Mg Tablet, 500 MG PO BID for cholecystitis, #10 TAB Prov:SWENSONSILVIA 07/09/18 Acetaminophen* (Acetaminophen*) 500 MG Extra Strength Tablet, 500 MG PO Q4H PRN for PAIN AND OR ELEVATED TEMP, #30 TAB Prov:LEELASILVIA 07/09/18 Magaldrate/Simethicone* (Mylanta*) 355 Ml Susp, 30 ML PO QID PRN for GASTROINTESTINAL UPSET, #1 BOTTLE Prov:LEELASILVIA 07/09/18 Ibuprofen* (Motrin*) 400 Mg Tab, 400 MG PO Q6H PRN for PAIN AND OR ELEVATED TEMP, #30 TAB Prov:LEELASILVIA 07/09/18 Famotidine* (Famotidine*) 20 Mg Tablet, 20 MG PO DAILY, #30 TAB Prov:CORTEZ SPEARS PA-C 06/23/18 Naproxen* (Naprosyn*) 500 Mg Tablet, 500 MG PO BID PRN for PAIN AND/OR INFLAMMATION, #30 TAB Prov:MERI LIM PA-C 04/25/18 Famotidine* (Pepcid*) 20 Mg Tablet, 20 MG PO BID for 4 Days, TAB Prov:MERI LIM PA-C 04/25/18 Famotidine* (Pepcid*) 20 Mg Tablet, 20 MG PO BID for pain for 15 Days, #30 TAB 0 Refills Prov:KRISTEL WAYNE 03/09/18 Hydrocodone/Acetaminophen ([place] 7.5-325 Tablet) 1 Each Tablet, 1 EACH PO DAILY for pain for 7 Days, #7 TAB 0 Refills Prov:KRISTEL WAYNE 03/09/18 Albuterol Sulfate* (Ventolin HFA*) 18 Gm Hfa.aer.ad, 2 PUFF INHALATION Q4H, #1 INHALER Prov:DARIEN,MELODY 02/10/18 Azithromycin* (Zithromax*) 250 Mg Tablet, 250 MG PO .YOLANDA DIRECTED, #6 TAB TAKE 500 MG (2 TABS) THE FIRST DAY THEN 250 MG (1 TAB) DAYS 2-5 Prov:DARIENNICO 02/10/18 Follow-up Plan 1. Avoid heavy lifting more than 20 lbs for 2 weeks. 2. Keep your incisions clean and dry. It's okay if the bandages come off. Okay to shower, pat dry. Avoid pools, tubs, and complete immersion in water until they are healed. 3. For pain, take [id number] ibuprofen 800mg every 6 hours or tylenol 650mg every 6 hours. Listen to your body and don't overexert yourself. Primary Care Provider [facility] Time spent on discharge: > 30 minutes POLLY DICKSON MD July 30, 2018 15:35
== END 2018-07-30 13:15 | disposition home or self-care (01) | DRG 418 ==
LOC: FTE 07:14 → SUATTDRO 09:00 → 5EC 09:16
PROVIDERS: ADMIT Internal Medicine; ATTEND Internal Medicine
PROC: 0FC98ZZ Extirpation of Matter from Common Bile Duct, Via Natural or Artificial Opening Endoscopic (ICD-10-PCS; 2018-07-27)
PROC: 0FT44ZZ Resection of Gallbladder, Percutaneous Endoscopic Approach (ICD-10-PCS; principal; 2018-07-28 08:00)
DX: K80.65 Calculus of gallbladder and bile duct with chronic cholecystitis with obstruction (principal); Z68.41 Body mass index [BMI] 40.0-44.9, adult; E66.01 Morbid (severe) obesity due to excess calories; K76.0 Fatty (change of) liver, not elsewhere classified; E78.5 Hyperlipidemia, unspecified
CPT/HCPCS: 36415; 74181; 74330; 76705; 80053; 80061; 81003; 83036; 83690; 83735; 84100; 84443; 84484; 85025; 88304; 93005; 96361; 96374; 96375; C9113; J0131; J0690; J1100; J1170; J2175; J2250; J2270; J2405; J2543; J2710; J3010; J7030; Q9967

== ENCOUNTER 2018-11-01 07:58 | Emergency (ER) | payer OTHER ==
[~2018-11-01] VITALS: Ht 182.9 cm; Wt 135.0 kg
[~2018-11-01 07:58] MED LIST changes: -ACET-141 PO; -ALBU18HF INHALATION; -AZIT250T PO; -CIPR500T4 PO; -FAMO-96 PO; -HYDR-4011 PO; -HYDR-4012 PO; -IBUP-1561 PO; -MAG-19 PO; -METR500T PO; -NAPR-985 PO; +NPH10OT LEFT EAR
[2018-11-01 08:00] VITALS: BP 150/78; PULSE 78; RESP 18; Ht 182.9 cm; Wt 135.0 kg
--- NOTE | 2018-11-01 15:41 | ERD ---
ER Documentation Chief Complaint Chief Complaint left ear pain HPI 23-year-old male presenting with pain to the left ear. Patient states that this is been going for last 2 days and is progressively worsening. He has some pain in his jaw but denies any dental pain. He has no fevers. He is never had this before and has not used medications. Medical history denies. NKDA. Surgical history is cholecystectomy. Social history denies ROS All systems reviewed and are negative except as per history of present illness. Medications Home Meds Active Scripts Neomycin/Polymyxin/Hydrocort* (Cortisporin* Otic) 10 Ml Susp, 4 DROP LEFT EAR QID for 7 Days, EA Prov:MERI LIM PA-C 11/01/18 Reported Medications Famotidine* (Famotidine*) 20 Mg Tablet, 20 MG PO BID, #60 TAB 07/26/18 Allergies Allergies: Coded Allergies: No Known Allergy (Unverified , 11/01/18) PMhx/Soc History of Surgery: Yes (gallstone removal) Anesthesia Reaction: No Hx Neurological Disorder: No Hx Respiratory Disorders: No Hx Cardiac Disorders: No Hx Psychiatric Problems: No Hx Miscellaneous Medical Probl: No Hx Alcohol Use: No Hx Substance Use: No Hx Tobacco Use: No Smoking Status: Never smoker FmHx Family History: No diabetes, No coronary disease, No other Physical Exam Vitals Vital Signs Date Temp Pulse Resp B/P (MAP) Pulse Ox O2 O2 Flow FiO2 Time Delivery Rate 11/01/18 97.7 78 18 150/78 99 08:00 (102) Physical Exam GENERAL: The patient is well-appearing, well-nourished, in no acute distress HEENT: Atraumatic. Conjunctivae are pink. Pupils equal, round, and reactive to light. There is no scleral icterus. Tympanic membranes clear bilaterally. Oropharynx clear. Erythema to the left external ear with crusting noted. Tympanic membrane is stable. Tragal tenderness CHEST: Clear to auscultation bilaterally. There are no rales, wheezes or rhonchi. HEART: Regular rate and rhythm. No murmurs, clicks, rubs or gallops. No S3 or S4. Procedures/MDM MDM: 23-year-old male presenting with findings consistent with otitis externa. I have low suspicion for otitis media or dental infection. I have low suspicion for deep facial abscess. Patient is discharged with strict ER precautions and told to follow-up with primary care within 1 to 2 days for close evaluation. Patient is told symptoms change or worsen to return immediately to the ER. All questions answered at discharge Departure Diagnosis: Primary Impression: Otitis externa Condition: Stable Patient Instructions: Otitis Externa (Child) Additional Instructions: FOLLOW UP WITH YOUR PRIMARY CARE PHYSICIAN TOMORROW.Return to this facility if you are not improving as expected. MERI LIM PA-C Nov 01, 2018 15:41
== END 2018-11-01 08:42 | disposition home or self-care (01) ==
LOC: FTE 07:58
DX: H60.92 Unspecified otitis externa, left ear (principal)
CPT/HCPCS: 99283